=== PATIENT | female | born 1965 | race Caucasian/White ===

== ENCOUNTER 2021-07-09 23:06 | Inpatient (IN) | payer OTHER, MEDICAID ==
[~2021-07-09] VITALS: Ht 162.6 cm; Wt 91.5 kg
[~2021-07-09 23:06] MED LIST: AMLOPIDINE PO; CARI-277 PO; CLOP75TA28 PO; IBUPROFIN PO; METF-370 PO; METHOCARBAMOL; METO-289 PO; NOR10T PO; SIMVISTATIN PO
[2021-07-10] MEDS ORDERED: ONDANSETRON HCL 4 MG/2 ML VIAL IV ONE (01:45)
[2021-07-10] MEDS ORDERED: HYDROmorphone HCL 2 MG/ML VL IV ONE ×2 (01:45→04:45)
[2021-07-10] MEDS ORDERED: dilTIAZem 25 MG/5 ML VIAL IV ONE (01:45)
[2021-07-10 02:22] LABS: Basophils # (auto) 0 10 ^3/uL (0-0.2); Basophils % (auto) 0.3 % (0.0-2.0); Eosinophils # (auto) 0.2 10 ^3/uL (0-0.8); Eosinophils % (auto) 2.1 % (0.0-7.0); Hematocrit 38.7 % (36.0-46.0); Hemoglobin 12.5 g/dL (12.2-16.2); Lymphocytes # (auto) 2.2 10 ^3/uL (0.4-5.4); Lymphocytes % (auto) 26.4 % (10.0-50.0); Mean Corpuscular Hemoglobin 31.3 pg (28.0-32.0); Mean Corpuscular Hgb Conc. 32.4 g/dL (32.0-36.0); Mean Corpuscular Volume 96.6 fL (80.0-100.0); Monocytes # (auto) 0.9 10 ^3/uL (0-1.3); Monocytes % (auto) 11.2 % (0.0-12.0); Nucleated Red Blood Cells % 0.1 %; Red Blood Cells 4.01 10^6/uL (4.0-5.20); White Blood Cell 8.4 10^3/uL (4.4-10.8)
[2021-07-10 02:35] LABS: INR 2.78 (0.9-1.15)
[2021-07-10] MEDS ORDERED: SODIUM CHLORIDE 0.9% 1,000 ML IV ONE ×2 (03:00→07:15)
[2021-07-10 03:16] LABS: Albumin 3.1 g/dL (3.4-5.0); Calcium 9.5 mg/dL (8.5-10.1); Magnesium 1.7 mg/dL (1.6-2.6); Potassium 4.4 mmol/L (3.5-5.1)
[2021-07-10 03:19] LABS: Bilirubin, Total 0.2 mg/dL (0.2-1.0); Total Protein 7.3 g/dL (6.4-8.2)
[2021-07-10] MEDS ORDERED: HYDROcodone-ACET 7.5/325MG TAB PO ONE (05:45)
[2021-07-10] MEDS ORDERED: AMIODARONE HCL 150 MG in D5W 5% 100 ML IV ONE (06:15)
[2021-07-10] MEDS ORDERED: AMIODARONE 450mg/250ml AE 250 ML IV SCH (06:30)
[2021-07-10] MEDS ORDERED: AMIODARONE HCL (50 MG/ ML) 3 ML VIAL IV ONE (06:55)
[2021-07-10] MEDS ORDERED: ACETAMINOPHEN 325 MG TAB PO PRN (07:45)
[2021-07-10] MEDS ORDERED: NITROGLYCERIN 0.4 MG SL TAB SL PRN (07:45)
[2021-07-10] MEDS ORDERED: DEXTROSE (50%) 50ML SYRG IV PRN (07:45)
[2021-07-10] MEDS ORDERED: MULTIPLE VITAMIN TAB PO SCH (10:00)
[2021-07-10] MEDS ORDERED: ASCORBIC ACID 500 MG TAB PO SCH (10:00)
[2021-07-10] MEDS: FAMOTIDINE (10MG/ML) 2ML VL IV SCH (10:00)
[2021-07-10] MEDS ORDERED: ZINC SULFATE 220mg CAP or TAB PO SCH (10:00)
[2021-07-10] MEDS ORDERED: ACCU-CHEK COMFORT CURVE STRIP VI SCH (11:30)
[2021-07-10] MEDS ORDERED: InsuLIN REG 1unit/0.01ml Soln (100units/ml) SC SCH ×2 (11:30→22:00)
[2021-07-10] MEDS ORDERED: NICOTINE 14 MG/24HR TOPICAL PATCH TD ONE (12:00)
[2021-07-10] MEDS ORDERED: HEPARIN SODIUM (PORCINE) 5000 UNITS/ML 1ML VIAL IV ONE (12:00)
[2021-07-10] MEDS ORDERED: DIGOXIN (250MCG/ML) 2 ML AMPULE IV ONE (13:30)
[2021-07-10] MEDS ORDERED: phytonadione 10 MG in SODIUM CHL 0.9% 50 ML IV ONE (13:30)
[2021-07-10] MEDS: SODIUM CHLORIDE 0.9% 1,000 ML IV SCH (13:30)
[2021-07-10] MEDS: SODIUM CHLOR 0.9% PF (SALINE LOCK) 10ML VIAL/SYR IV SCH (14:00)
[2021-07-10] MEDS: HEPARIN DRIP/D5W 100UNITS/ML 250 ML IV SCH (15:00)
[2021-07-10] MEDS: NOREPINEPHRINE 8 MG/250ML KIT 250 ML IV SCH (15:45)
[2021-07-10] MEDS: MORPHINE SULFATE 4 MG/ML SYR/VIAL IV PRN (21:42)
[2021-07-10] MEDS: ONDANSETRON HCL 4 MG/2 ML VIAL IV PRN (21:43)
[2021-07-10 22:42] LABS: Basophils # (auto) 0 10 ^3/uL (0-0.2); Basophils % (auto) 0.5 % (0.0-2.0); Eosinophils # (auto) 0.3 10 ^3/uL (0-0.8); Eosinophils % (auto) 3.4 % (0.0-7.0); Hematocrit 34.7 % (36.0-46.0); Hemoglobin 11.3 g/dL (12.2-16.2); Lymphocytes # (auto) 1.6 10 ^3/uL (0.4-5.4); Lymphocytes % (auto) 17.3 % (10.0-50.0); Mean Corpuscular Hemoglobin 31.3 pg (28.0-32.0); Mean Corpuscular Hgb Conc. 32.6 g/dL (32.0-36.0); Mean Corpuscular Volume 96.1 fL (80.0-100.0); Monocytes % (auto) 10.3 % (0.0-12.0); Neutrophils # (auto) 6.5 10 ^3/uL (1.6-8.6); Neutrophils % (auto) 68.5 % (37.0-80.0); Red Blood Cells 3.62 10^6/uL (4.0-5.20); Red Cell Distribution Width 17.7 % (11.8-14.3); White Blood Cell 9.4 10^3/uL (4.4-10.8)
[2021-07-10 22:54] LABS: INR 1.56 (0.9-1.15); Partial Thromboplastin Time 45.4 sec (23.6-33.0)
[2021-07-11] MEDS: SODIUM CHLOR 0.9% PF (SALINE LOCK) 10ML VIAL/SYR IV SCH ×4 (00:41→22:00)
[2021-07-11] MEDS: SODIUM CHLORIDE 0.9% 1,000 ML IV SCH ×3 (00:41→20:20)
[2021-07-11 03:30] LABS: INR 1.26 (0.9-1.15); Partial Thromboplastin Time 51.5 sec (23.6-33.0)
[2021-07-11] MEDS ORDERED: FOLI1TAB6 PO (05:26)
[2021-07-11] MEDS ORDERED: SITA50TA PO (05:26)
[2021-07-11] MEDS ORDERED: PIO30T PO (05:26)
[2021-07-11] MEDS ORDERED: AMLO-489 PO (05:26)
[2021-07-11] MEDS ORDERED: GABA300C10 PO (05:26)
[2021-07-11] MEDS ORDERED: ATOR80TA PO (05:26)
[2021-07-11] MEDS ORDERED: OME20GT PO (05:26)
[2021-07-11] MEDS ORDERED: METF-372 PO (05:26)
[2021-07-11] MEDS ORDERED: HYDR-3682 PO (05:26)
[2021-07-11] MEDS ORDERED: LISI40TA11 PO (05:26)
[2021-07-11] MEDS ORDERED: DULO60CA PO (05:26)
[2021-07-11] MEDS ORDERED: FAMO-12 PO (05:26)
[2021-07-11] MEDS ORDERED: WARF2TAB49 PO (05:26)
[2021-07-11] MEDS ORDERED: DAPA1TAB4 PO (05:26)
[2021-07-11] MEDS ORDERED: METO-159 PO (05:26)
[2021-07-11 07:14] LABS: Basophils # (auto) 0 10 ^3/uL (0-0.2); Basophils % (auto) 0.6 % (0.0-2.0); Eosinophils # (auto) 0.3 10 ^3/uL (0-0.8); Eosinophils % (auto) 4.2 % (0.0-7.0); Hematocrit 31.9 % (36.0-46.0); Hemoglobin 10.3 g/dL (12.2-16.2); Lymphocytes # (auto) 1.4 10 ^3/uL (0.4-5.4); Lymphocytes % (auto) 21.4 % (10.0-50.0); Mean Corpuscular Hemoglobin 31.2 pg (28.0-32.0); Mean Corpuscular Hgb Conc. 32.2 g/dL (32.0-36.0); Mean Corpuscular Volume 96.8 fL (80.0-100.0); Monocytes # (auto) 0.7 10 ^3/uL (0-1.3); Monocytes % (auto) 10.8 % (0.0-12.0); Neutrophils # (auto) 4.1 10 ^3/uL (1.6-8.6); Red Blood Cells 3.29 10^6/uL (4.0-5.20); Red Cell Distribution Width 17.3 % (11.8-14.3); White Blood Cell 6.5 10^3/uL (4.4-10.8)
[2021-07-11 07:30] LABS: Potassium 4.5 mmol/L (3.5-5.1)
[2021-07-11 08:43] LABS: Magnesium 1.5 mg/dL (1.6-2.6)
[2021-07-11 08:51] LABS: Albumin 2.6 g/dL (3.4-5.0); BUN/Creatinine Ratio 14.3; Bilirubin, Total 0.3 mg/dL (0.2-1.0); Calcium 8.4 mg/dL (8.5-10.1); Phosphorus 2.4 mg/dL (2.5-4.90)
[2021-07-11] MEDS ORDERED: IOHEXOL 350 MG/ML 100ML IJ ONE (12:35)
[2021-07-11 13:15] LABS: INR 1.1 (0.9-1.15); Partial Thromboplastin Time 54.5 sec (23.6-33.0)
[2021-07-11] MEDS: HEPARIN DRIP/D5W 100UNITS/ML 250 ML IV SCH (14:00)
[2021-07-11] MEDS: NOREPINEPHRINE 8 MG/250ML KIT 250 ML IV SCH (14:12)
[2021-07-11] MEDS: ONDANSETRON HCL 4 MG/2 ML VIAL IV PRN ×2 (14:13→17:45)
[2021-07-11] MEDS: MORPHINE SULFATE 4 MG/ML SYR/VIAL IV PRN ×2 (14:13→20:29)
[2021-07-11] MEDS: NICOTINE 14 MG/24HR TOPICAL PATCH TD SCH (14:40)
[2021-07-11] MEDS: FAMOTIDINE (10MG/ML) 2ML VL IV SCH (14:40)
[2021-07-11] MEDS ORDERED: diphenhdrAMINE HCL 50 MG/1 ML VL ONE (15:33)
[2021-07-11] MEDS ORDERED: diphenhdrAMINE HCL 50 MG/1 ML VL IV ONE (15:45)
[2021-07-11 21:53] LABS: Partial Thromboplastin Time > 139.0 sec (23.6-33.0)
[2021-07-11] MEDS: MORPHINE SULFATE INJECTION 2 MG/ML SYRG IV PRN ×2 (22:13→23:39)
[2021-07-12 02:38] LABS: INR 1.05 (0.9-1.15); Partial Thromboplastin Time 29.8 sec (23.6-33.0)
[2021-07-12] MEDS: MORPHINE SULFATE 4 MG/ML SYR/VIAL IV PRN ×4 (02:51→23:40)
[2021-07-12] MEDS ORDERED: HEPARIN SODIUM (PORCINE) 5000 UNITS/ML 1ML VIAL IV ONE (03:30)
[2021-07-12 05:36] LABS: Potassium 4.5 mmol/L (3.5-5.1)
[2021-07-12] MEDS: SODIUM CHLOR 0.9% PF (SALINE LOCK) 10ML VIAL/SYR IV SCH ×3 (06:05→23:38)
[2021-07-12 06:13] LABS: BUN/Creatinine Ratio 12.5; Calcium 8.3 mg/dL (8.5-10.1)
[2021-07-12 06:23] LABS: Basophils # (auto) 0 10 ^3/uL (0-0.2); Basophils % (auto) 0.7 % (0.0-2.0); Eosinophils # (auto) 0.2 10 ^3/uL (0-0.8); Eosinophils % (auto) 4.1 % (0.0-7.0); Hematocrit 28.4 % (36.0-46.0); Hemoglobin 9.4 g/dL (12.2-16.2); Lymphocytes # (auto) 1.7 10 ^3/uL (0.4-5.4); Lymphocytes % (auto) 28.1 % (10.0-50.0); Mean Corpuscular Hemoglobin 32.1 pg (28.0-32.0); Mean Corpuscular Volume 97.1 fL (80.0-100.0); Monocytes # (auto) 0.6 10 ^3/uL (0-1.3); Monocytes % (auto) 9.6 % (0.0-12.0); Neutrophils # (auto) 3.5 10 ^3/uL (1.6-8.6); Neutrophils % (auto) 57.5 % (37.0-80.0); Nucleated Red Blood Cells % 0.2 %; Red Blood Cells 2.92 10^6/uL (4.0-5.20); Red Cell Distribution Width 17.3 % (11.8-14.3)
[2021-07-12] MEDS: SODIUM CHLORIDE 0.9% 1,000 ML IV SCH ×2 (08:49→17:40)
[2021-07-12] MEDS: FAMOTIDINE (10MG/ML) 2ML VL IV SCH (08:53)
[2021-07-12] MEDS: ONDANSETRON HCL 4 MG/2 ML VIAL IV PRN ×2 (08:55→14:37)
[2021-07-12] MEDS ORDERED: GABAPENTIN 100 MG CAP PO ONE (09:15)
[2021-07-12] MEDS: GABAPENTIN 100 MG CAP PO SCH ×2 (09:42→23:38)
[2021-07-12] MEDS: NICOTINE 14 MG/24HR TOPICAL PATCH TD SCH (09:42)
[2021-07-12 10:28] LABS: INR 1.05 (0.9-1.15)
[2021-07-12 10:33] LABS: Partial Thromboplastin Time 81.9 sec (23.6-33.0)
[2021-07-12] MEDS ORDERED: HEPARIN DRIP/D5W 100UNITS/ML 250 ML IV SCH (12:30)
[2021-07-12] MEDS ORDERED: diphenhdrAMINE HCL 50 MG/1 ML VL IV ONE (16:30)
[2021-07-12 18:50] LABS: INR 0.99 (0.9-1.15); Partial Thromboplastin Time 49.2 sec (23.6-33.0)
[2021-07-12] MEDS: diphenhdrAMINE HCL 50 MG/1 ML VL IV PRN (22:04)
[2021-07-13] MEDS: SODIUM CHLORIDE 0.9% 1,000 ML IV SCH ×2 (01:46→09:38)
[2021-07-13 03:02] LABS: INR 0.99 (0.9-1.15); Partial Thromboplastin Time 50.9 sec (23.6-33.0)
[2021-07-13 05:00] VITALS: BP 102/58
[2021-07-13] MEDS: SODIUM CHLOR 0.9% PF (SALINE LOCK) 10ML VIAL/SYR IV SCH ×3 (05:35→21:47)
[2021-07-13 08:44] LABS: Basophils # (auto) 0 10 ^3/uL (0-0.2); Basophils % (auto) 0.9 % (0.0-2.0); Eosinophils # (auto) 0.3 10 ^3/uL (0-0.8); Eosinophils % (auto) 5.1 % (0.0-7.0); Hematocrit 27.6 % (36.0-46.0); Lymphocytes # (auto) 1.4 10 ^3/uL (0.4-5.4); Lymphocytes % (auto) 27.9 % (10.0-50.0); Mean Corpuscular Hemoglobin 31.5 pg (28.0-32.0); Mean Corpuscular Hgb Conc. 32.8 g/dL (32.0-36.0); Monocytes # (auto) 0.4 10 ^3/uL (0-1.3); Monocytes % (auto) 7.9 % (0.0-12.0); Neutrophils % (auto) 58.2 % (37.0-80.0); Nucleated Red Blood Cells % 0.4 %; Red Blood Cells 2.87 10^6/uL (4.0-5.20); Red Cell Distribution Width 17.5 % (11.8-14.3); White Blood Cell 5.1 10^3/uL (4.4-10.8)
[2021-07-13 08:48] VITALS: BP 134/72
[2021-07-13 08:59] LABS: INR 0.98 (0.9-1.15); Partial Thromboplastin Time 25.4 sec (23.6-33.0)
[2021-07-13 09:00] LABS: Potassium 4.3 mmol/L (3.5-5.1)
[2021-07-13 09:09] LABS: Calcium 7.9 mg/dL (8.5-10.1)
[2021-07-13] MEDS: FAMOTIDINE (10MG/ML) 2ML VL IV SCH (09:31)
[2021-07-13] MEDS: MORPHINE SULFATE 4 MG/ML SYR/VIAL IV PRN ×3 (09:32→20:34)
[2021-07-13] MEDS: diphenhdrAMINE HCL 50 MG/1 ML VL IV PRN ×2 (09:32→20:31)
[2021-07-13] MEDS: GABAPENTIN 100 MG CAP PO SCH ×2 (10:00→23:40)
[2021-07-13] MEDS: NICOTINE 14 MG/24HR TOPICAL PATCH TD SCH (10:00)
[2021-07-13] MEDS ORDERED: LIDOCAINE 2%HCL (LOCAL ANESTH.) INJ 20ML MDV ONE ×2 (10:41→11:47)
[2021-07-13] MEDS ORDERED: fentaNYL CITRATE 100 MCG/2 ML VL ONE ×2 (11:46→13:54)
[2021-07-13] MEDS ORDERED: ANGIOMAX 250 MG VIAL IV ONE ×2 (11:46→13:54)
[2021-07-13] MEDS ORDERED: SODIUM CHL 0.9% 50 ML ONE ×2 (11:47→13:55)
[2021-07-13] MEDS ORDERED: MIDAZOLAM HCL 2MG/2ML 2ml VIAL (1mg/ml) ONE ×2 (11:47→13:54)
[2021-07-13] MEDS ORDERED: IODIXANOL 320MG/ML 100ML BTL IV ONE ×2 (14:01→14:47)
[2021-07-13] MEDS ORDERED: FUROSEMIDE 40 MG/4 ML VIAL IV ONE (16:00)
[2021-07-13] MEDS ORDERED: CLOPIDOGREL BISULFATE 75 MG TAB PO ONE (16:00)
[2021-07-13 17:00] VITALS: BP 136/81
[2021-07-13] MEDS ORDERED: WARFARIN SODIUM 2 MG TAB PO ONE (17:00)
[2021-07-13] MEDS: LEVALBUTEROL HCL 1.25 MG/3 ML NEB NEB SCH (18:39)
[2021-07-13] MEDS: IPRATROPIUM BROM 0.5 MG/2.5ML INH SOL NEB SCH (18:39)
[2021-07-13 22:00] VITALS: BP 98/72
[2021-07-14 00:59] LABS: Urine Bacteria NONE SEEN /hpf (None Seen); Urine Blood Negative /uL (Negative); Urine WBC 4 /hpf (0 - 5)
[2021-07-14 01:03] LABS: Urine Specific Gravity > 1.050 (1.001-1.035)
[2021-07-14] MEDS: MORPHINE SULFATE 4 MG/ML SYR/VIAL IV PRN ×4 (03:45→20:17)
[2021-07-14 05:00] VITALS: BP 122/73
[2021-07-14] MEDS: IPRATROPIUM BROM 0.5 MG/2.5ML INH SOL NEB SCH ×4 (07:17→19:10)
[2021-07-14] MEDS: LEVALBUTEROL HCL 1.25 MG/3 ML NEB NEB SCH ×4 (07:17→19:10)
[2021-07-14 07:52] LABS: Basophils # (auto) 0 10 ^3/uL (0-0.2); Basophils % (auto) 0.4 % (0.0-2.0); Eosinophils # (auto) 0.3 10 ^3/uL (0-0.8); Eosinophils % (auto) 4.8 % (0.0-7.0); Hematocrit 28.2 % (36.0-46.0); Hemoglobin 9.5 g/dL (12.2-16.2); Lymphocytes % (auto) 18.3 % (10.0-50.0); Mean Corpuscular Hemoglobin 32.2 pg (28.0-32.0); Mean Corpuscular Hgb Conc. 33.9 g/dL (32.0-36.0); Mean Corpuscular Volume 94.9 fL (80.0-100.0); Monocytes # (auto) 0.6 10 ^3/uL (0-1.3); Monocytes % (auto) 10.6 % (0.0-12.0); Neutrophils # (auto) 3.6 10 ^3/uL (1.6-8.6); Neutrophils % (auto) 65.9 % (37.0-80.0); Nucleated Red Blood Cells % 0.2 %; Red Blood Cells 2.97 10^6/uL (4.0-5.20); White Blood Cell 5.5 10^3/uL (4.4-10.8)
[2021-07-14 08:03] LABS: INR 1.02 (0.9-1.15)
[2021-07-14 08:15] LABS: Potassium 3.5 mmol/L (3.5-5.1)
[2021-07-14 08:20] LABS: Calcium 8.1 mg/dL (8.5-10.1)
[2021-07-14] MEDS ORDERED: ENOXAPARIN SOD 60 MG/0.6 ML SYRINGE SC ONE (09:00)
[2021-07-14] MEDS: GABAPENTIN 100 MG CAP PO SCH ×2 (09:11→20:16)
[2021-07-14] MEDS: CLOPIDOGREL BISULFATE 75 MG TAB PO SCH (09:12)
[2021-07-14] MEDS: NICOTINE 14 MG/24HR TOPICAL PATCH TD SCH (09:14)
[2021-07-14] MEDS: diphenhdrAMINE HCL 50 MG/1 ML VL IV PRN ×3 (09:15→20:17)
[2021-07-14] MEDS: SODIUM CHLOR 0.9% PF (SALINE LOCK) 10ML VIAL/SYR IV SCH ×3 (10:07→20:16)
[2021-07-14] MEDS ORDERED: FUROSEMIDE 40 MG/4 ML VIAL IV ONE (10:30)
[2021-07-14] MEDS ORDERED: POTASSIUM CHL 20 Meq TABLET PO ONE (10:30)
[2021-07-14] MEDS ORDERED: CHOLECALCIFEROL (VITD3) 2,000 UNIT CAP/TAB PO ONE (10:30)
[2021-07-14 17:00] VITALS: BP 136/86
[2021-07-14] MEDS ORDERED: WARFARIN SODIUM 2.5 MG TAB PO ONE (17:00)
[2021-07-14] MEDS: DOCUSATE SOD 100 MG CAP PO PRN (18:03)
[2021-07-14] MEDS: HYDROcodone-ACET 5/325MG TAB PO PRN (18:03)
[2021-07-14 22:00] VITALS: BP 127/76
[2021-07-15] MEDS: HYDROcodone-ACET 5/325MG TAB PO PRN (00:39)
[2021-07-15] MEDS: diphenhdrAMINE HCL 50 MG/1 ML VL IV PRN (03:47)
[2021-07-15] MEDS: MORPHINE SULFATE 4 MG/ML SYR/VIAL IV PRN ×2 (03:47→09:57)
[2021-07-15 05:00] VITALS: BP 129/76
[2021-07-15] MEDS: SODIUM CHLOR 0.9% PF (SALINE LOCK) 10ML VIAL/SYR IV SCH ×2 (06:00→14:00)
[2021-07-15 08:15] VITALS: BP 109/62
[2021-07-15] MEDS: IPRATROPIUM BROM 0.5 MG/2.5ML INH SOL NEB SCH ×2 (08:37)
[2021-07-15] MEDS: LEVALBUTEROL HCL 1.25 MG/3 ML NEB NEB SCH ×2 (08:38)
[2021-07-15 09:00] VITALS: BP 109/62
[2021-07-15] MEDS: NICOTINE 14 MG/24HR TOPICAL PATCH TD SCH (09:44)
[2021-07-15] MEDS: GABAPENTIN 100 MG CAP PO SCH (09:44)
[2021-07-15] MEDS: DOCUSATE SOD 100 MG CAP PO PRN (09:45)
[2021-07-15] MEDS: CLOPIDOGREL BISULFATE 75 MG TAB PO SCH (09:45)
[2021-07-15] MEDS ORDERED: CHOLECALCIFEROL (VITD3) 2,000 UNIT CAP/TAB PO SCH (10:00)
[2021-07-15 10:18] LABS: Basophils # (auto) 0 10 ^3/uL (0-0.2); Basophils % (auto) 0.6 % (0.0-2.0); Eosinophils # (auto) 0.3 10 ^3/uL (0-0.8); Eosinophils % (auto) 6.3 % (0.0-7.0); Hematocrit 30.2 % (36.0-46.0); Hemoglobin 10.5 g/dL (12.2-16.2); Lymphocytes % (auto) 20.4 % (10.0-50.0); Mean Corpuscular Hemoglobin 32.6 pg (28.0-32.0); Mean Corpuscular Hgb Conc. 34.7 g/dL (32.0-36.0); Mean Corpuscular Volume 94.1 fL (80.0-100.0); Monocytes # (auto) 0.5 10 ^3/uL (0-1.3); Monocytes % (auto) 10.1 % (0.0-12.0); Neutrophils # (auto) 3.1 10 ^3/uL (1.6-8.6); Neutrophils % (auto) 62.6 % (37.0-80.0); Nucleated Red Blood Cells % 0.3 %; Red Blood Cells 3.21 10^6/uL (4.0-5.20); Red Cell Distribution Width 17.6 % (11.8-14.3); White Blood Cell 4.9 10^3/uL (4.4-10.8)
[2021-07-15 10:36] LABS: INR 1.06 (0.9-1.15); Partial Thromboplastin Time 26.9 sec (23.6-33.0)
[2021-07-15 10:45] LABS: BUN/Creatinine Ratio 11.4; Calcium 8.3 mg/dL (8.5-10.1); Potassium 3.9 mmol/L (3.5-5.1)
[2021-07-15] MEDS ORDERED: CHOL1CAP47 PO (12:16)
[2021-07-15] MEDS ORDERED: NICO14DI9 TD (12:16)
[2021-07-15 13:00] VITALS: BP 115/56
[2021-07-15 15:57] VITALS: BP 130/82
[2021-07-15 16:00] VITALS: BP 130/82
[2021-07-15] MEDS ORDERED: WARFARIN SODIUM 10 MG TAB PO ONE (17:00)
== END 2021-07-15 16:35 | disposition home or self-care (01) | DRG 252 ==
LOC: ER 23:06 → TELE 07-10 07:44 → TELE-WESTW 07-12 22:36
PROVIDERS: ADMIT Nurse Practitioner Family; ATTEND Internal Medicine
PROC: 047M3ZZ Dilation of Right Popliteal Artery, Percutaneous Approach (ICD-10-PCS; principal; 2021-07-13)
PROC: 047K3DZ Dilation of Right Femoral Artery with Intraluminal Device, Percutaneous Approach (ICD-10-PCS; 2021-07-13)
PROC: B41FYZZ Fluoroscopy of Right Lower Extremity Arteries using Other Contrast (ICD-10-PCS; 2021-07-13)
PROC: B41CYZZ Fluoroscopy of Pelvic Arteries using Other Contrast (ICD-10-PCS; 2021-07-13)
PROC: 05HD33Z Insertion of Infusion Device into Right Cephalic Vein, Percutaneous Approach (ICD-10-PCS; 2021-07-13)
PROC: B54MZZA Ultrasonography of Right Upper Extremity Veins, Guidance (ICD-10-PCS; 2021-07-13)
DX: E11.51 Type 2 diabetes mellitus with diabetic peripheral angiopathy without gangrene (principal); I21.A1 Myocardial infarction type 2; I77.77 Dissection of artery of lower extremity; D68.9 Coagulation defect, unspecified; I47.1 Supraventricular tachycardia; R57.9 Shock, unspecified; I48.92 Unspecified atrial flutter; N17.8 Other acute kidney failure; E11.22 Type 2 diabetes mellitus with diabetic chronic kidney disease; F17.210 Nicotine dependence, cigarettes, uncomplicated; I12.9 Hypertensive chronic kidney disease with stage 1 through stage 4 chronic kidney disease, or unspecified chronic kidney disease; E78.5 Hyperlipidemia, unspecified; Z20.822 Contact with and (suspected) exposure to COVID-19; E66.9 Obesity, unspecified; N87.9 Dysplasia of cervix uteri, unspecified; I70.201 Unspecified atherosclerosis of native arteries of extremities, right leg; I48.91 Unspecified atrial fibrillation; N18.31 Chronic kidney disease, stage 3a; Z79.01 Long term (current) use of anticoagulants; Z88.2 Allergy status to sulfonamides; Z68.32 Body mass index [BMI] 32.0-32.9, adult; Z87.442 Personal history of urinary calculi; Z95.1 Presence of aortocoronary bypass graft; Z95.2 Presence of prosthetic heart valve; Z98.51 Tubal ligation status; Z90.49 Acquired absence of other specified parts of digestive tract
CPT/HCPCS: 36415; 37226; 71045; 75635; 75710; 75736; 76775; 76942; 80048; 80053; 81001; 82306; 83735; 83880; 83970; 84100; 84484; 85025; 85610; 85730; 86850; 86900; 86901; 87040; 87081; 87086; 87088; 87186; 87426; 93005; 93306; 93926; 93971; 94640; 96361; 96374; 96375; 99152; 99153; C1884; G0378; J2250; J2405; J3430; J3490; J7060; Q9967

== ENCOUNTER 2021-07-18 13:03 | Inpatient (IN) | payer OTHER, MEDICAID ==
[~2021-07-18] VITALS: Ht 162.6 cm; Wt 96.8 kg
[~2021-07-18 13:03] MED LIST changes: +AMLO-489 PO; +ATOR80TA PO; +CHOL1CAP47 PO; +DAPA1TAB4 PO; +DULO60CA PO; +FAMO-12 PO; +FOLI1TAB6 PO; +GABA300C10 PO; +HYDR-3682 PO; -IBUPROFIN PO; +LISI40TA11 PO; +METF-372 PO; -METHOCARBAMOL; +METO-159 PO; +NICO14DI9 TD; +OME20GT PO; +PIO30T PO; -SIMVISTATIN PO; +SITA50TA PO; +WARF2TAB49 PO
[2021-07-18 14:05] LABS: Urine Bacteria FEW /hpf (None Seen); Urine Blood Negative /uL (Negative); Urine Hyaline Cast MOD /lpf (0 - 2); Urine Mucus FEW (None Seen); Urine Specific Gravity 1.006 (1.001-1.035); Urine WBC 25 /hpf (0 - 5)
[2021-07-18 14:52] LABS: Basophils # (auto) 0.1 10 ^3/uL (0-0.2); Basophils % (auto) 1.1 % (0.0-2.0); Eosinophils # (auto) 0.4 10 ^3/uL (0-0.8); Eosinophils % (auto) 3.9 % (0.0-7.0); Hematocrit 35.5 % (36.0-46.0); Hemoglobin 11.7 g/dL (12.2-16.2); Lymphocytes # (auto) 2.1 10 ^3/uL (0.4-5.4); Lymphocytes % (auto) 19.3 % (10.0-50.0); Mean Corpuscular Hemoglobin 31.5 pg (28.0-32.0); Mean Corpuscular Volume 95.4 fL (80.0-100.0); Monocytes # (auto) 1.2 10 ^3/uL (0-1.3); Monocytes % (auto) 10.4 % (0.0-12.0); Neutrophils # (auto) 7.2 10 ^3/uL (1.6-8.6); Neutrophils % (auto) 65.3 % (37.0-80.0); Nucleated Red Blood Cells % 0.1 %; Red Blood Cells 3.72 10^6/uL (4.0-5.20); Red Cell Distribution Width 17.8 % (11.8-14.3); White Blood Cell 11.1 10^3/uL (4.4-10.8)
[2021-07-18 15:11] LABS: Albumin 3.4 g/dL (3.4-5.0); Calcium 9.6 mg/dL (8.5-10.1); Potassium 3.9 mmol/L (3.5-5.1)
[2021-07-18 15:13] LABS: BUN/Creatinine Ratio 17.5; Bilirubin, Total 0.4 mg/dL (0.2-1.0); Total Protein 7.2 g/dL (6.4-8.2)
[2021-07-19] MEDS ORDERED: SODIUM CHLORIDE 0.9% 1,000 ML IV ONE (02:30)
[2021-07-19 03:19] LABS: INR 1.18 (0.9-1.15)
[2021-07-19] MEDS ORDERED: ONDANSETRON HCL 4 MG/2 ML VIAL IV ONE (03:45)
[2021-07-19] MEDS ORDERED: HEPARIN SODIUM (PORCINE) 5000 UNITS/ML 1ML VIAL IV ONE ×2 (03:45→04:00)
[2021-07-19] MEDS ORDERED: MORPHINE SULFATE 4 MG/ML SYR/VIAL IV ONE (03:45)
[2021-07-19] MEDS ORDERED: HEPARIN DRIP/D5W 100UNITS/ML 250 ML IV SCH (03:45)
[2021-07-19 03:51] LABS: Basophils # (auto) 0.1 10 ^3/uL (0-0.2); Basophils % (auto) 0.9 % (0.0-2.0); Eosinophils # (auto) 0.6 10 ^3/uL (0-0.8); Eosinophils % (auto) 5.7 % (0.0-7.0); Hematocrit 33.1 % (36.0-46.0); Lymphocytes # (auto) 1.8 10 ^3/uL (0.4-5.4); Lymphocytes % (auto) 18.4 % (10.0-50.0); Mean Corpuscular Hemoglobin 31.5 pg (28.0-32.0); Mean Corpuscular Hgb Conc. 33.2 g/dL (32.0-36.0); Mean Corpuscular Volume 94.7 fL (80.0-100.0); Monocytes # (auto) 1.2 10 ^3/uL (0-1.3); Monocytes % (auto) 12.2 % (0.0-12.0); Neutrophils # (auto) 6.3 10 ^3/uL (1.6-8.6); Neutrophils % (auto) 62.8 % (37.0-80.0); Red Blood Cells 3.49 10^6/uL (4.0-5.20); Red Cell Distribution Width 17.5 % (11.8-14.3)
[2021-07-19] MEDS: HEPARIN DRIP/D5W 100UNITS/ML 250 ML IV SCH ×2 (04:00→22:19)
[2021-07-19] MEDS ORDERED: ONDANSETRON HCL 4 MG/2 ML VIAL IV PRN (05:00)
[2021-07-19] MEDS ORDERED: ACETAMINOPHEN 325 MG TAB PO PRN (05:00)
[2021-07-19] MEDS ORDERED: hydrALAZINE HCL 20 MG/ML VL IV PRN (05:00)
[2021-07-19 08:16] LABS: Basophils # (auto) 0.1 10 ^3/uL (0-0.2); Eosinophils # (auto) 0.6 10 ^3/uL (0-0.8); Eosinophils % (auto) 6.1 % (0.0-7.0); Hematocrit 31.4 % (36.0-46.0); Hemoglobin 10.7 g/dL (12.2-16.2); Lymphocytes % (auto) 20.6 % (10.0-50.0); Mean Corpuscular Hemoglobin 32.7 pg (28.0-32.0); Mean Corpuscular Volume 96.1 fL (80.0-100.0); Monocytes # (auto) 1.2 10 ^3/uL (0-1.3); Neutrophils # (auto) 5.8 10 ^3/uL (1.6-8.6); Neutrophils % (auto) 60.3 % (37.0-80.0); Nucleated Red Blood Cells % 0.1 %; Red Blood Cells 3.27 10^6/uL (4.0-5.20); Red Cell Distribution Width 17.5 % (11.8-14.3); White Blood Cell 9.7 10^3/uL (4.4-10.8)
[2021-07-19 08:33] LABS: Albumin 2.6 g/dL (3.4-5.0); Calcium 8.2 mg/dL (8.5-10.1); Potassium 3.7 mmol/L (3.5-5.1)
[2021-07-19 08:37] LABS: BUN/Creatinine Ratio 18.5; Bilirubin, Total 0.3 mg/dL (0.2-1.0)
[2021-07-19] MEDS: cefTRIAXone 1GM/50ML D5W 50 ML IV SCH (09:00)
[2021-07-19] MEDS: FAMOTIDINE (10MG/ML) 2ML VL IV SCH ×2 (10:00→22:19)
[2021-07-19] MEDS: MORPHINE SULFATE 4 MG/ML SYR/VIAL IV PRN ×3 (10:20→22:24)
[2021-07-19] MEDS ORDERED: CLOPIDOGREL BISULFATE 75 MG TAB PO ONE (11:15)
[2021-07-19] MEDS ORDERED: IOHEXOL 350 MG/ML 100ML IJ ONE (12:24)
[2021-07-19 20:20] VITALS: BP 108/52
[2021-07-19 21:26] LABS: INR 1.23 (0.9-1.15)
[2021-07-19 21:31] LABS: Partial Thromboplastin Time > 139.0 sec (23.6-33.0)
[2021-07-19 22:00] VITALS: BP 113/69
[2021-07-19] MEDS: ATORVASTATIN 20 MG TAB PO SCH (22:20)
[2021-07-20] MEDS: HYDROcodone-ACET 5/325MG TAB PO PRN ×3 (01:05→10:22)
[2021-07-20] MEDS: diphenhdrAMINE HCL 25 MG CAP PO PRN (01:06)
[2021-07-20 03:25] LABS: INR 1.22 (0.9-1.15)
[2021-07-20] MEDS: MORPHINE SULFATE 4 MG/ML SYR/VIAL IV PRN ×4 (03:39→21:48)
[2021-07-20 04:17] LABS: Basophils # (auto) 0.1 10 ^3/uL (0-0.2); Eosinophils # (auto) 0.5 10 ^3/uL (0-0.8); Eosinophils % (auto) 5.6 % (0.0-7.0); Hematocrit 32.9 % (36.0-46.0); Hemoglobin 11.1 g/dL (12.2-16.2); Lymphocytes # (auto) 2.2 10 ^3/uL (0.4-5.4); Lymphocytes % (auto) 25.1 % (10.0-50.0); Mean Corpuscular Hemoglobin 32.2 pg (28.0-32.0); Mean Corpuscular Hgb Conc. 33.7 g/dL (32.0-36.0); Mean Corpuscular Volume 95.4 fL (80.0-100.0); Monocytes # (auto) 0.9 10 ^3/uL (0-1.3); Monocytes % (auto) 9.7 % (0.0-12.0); Neutrophils # (auto) 5.1 10 ^3/uL (1.6-8.6); Neutrophils % (auto) 58.6 % (37.0-80.0); Red Blood Cells 3.45 10^6/uL (4.0-5.20); Red Cell Distribution Width 17.3 % (11.8-14.3); White Blood Cell 8.8 10^3/uL (4.4-10.8)
[2021-07-20 05:00] VITALS: BP 107/61
[2021-07-20 05:13] LABS: BUN/Creatinine Ratio 30.1; Bilirubin, Total 0.3 mg/dL (0.2-1.0); Calcium 8.6 mg/dL (8.5-10.1); Potassium 3.8 mmol/L (3.5-5.1); Total Protein 6.1 g/dL (6.4-8.2)
[2021-07-20 05:14] LABS: Albumin 2.8 g/dL (3.4-5.0); Magnesium 1.8 mg/dL (1.6-2.6)
[2021-07-20] MEDS: HEPARIN DRIP/D5W 100UNITS/ML 250 ML IV SCH (06:15)
[2021-07-20] MEDS: cefTRIAXone 1GM/50ML D5W 50 ML IV SCH (08:14)
[2021-07-20] MEDS: FAMOTIDINE (10MG/ML) 2ML VL IV SCH ×2 (08:54→21:48)
[2021-07-20] MEDS: CLOPIDOGREL BISULFATE 75 MG TAB PO SCH (08:54)
[2021-07-20 09:58] VITALS: BP 95/50
[2021-07-20 10:05] LABS: INR 1.21 (0.9-1.15)
[2021-07-20 10:41] LABS: Hepatitis B Surface Antibody Negative (Negative)
[2021-07-20 10:42] LABS: Partial Thromboplastin Time 76.1 sec (23.6-33.0)
[2021-07-20 11:05] LABS: Hepatitis A Total Antibody Negative (Negative)
[2021-07-20 13:00] VITALS: BP 120/60
[2021-07-20 14:36] LABS: Hepatitis C Antibody Negative (Negative)
[2021-07-20 17:00] VITALS: BP 121/69
[2021-07-20 18:36] LABS: INR 1.16 (0.9-1.15); Partial Thromboplastin Time 35.6 sec (23.6-33.0)
[2021-07-20] MEDS: ATORVASTATIN 20 MG TAB PO SCH (21:49)
[2021-07-20 22:00] VITALS: BP 125/74
[2021-07-20] MEDS ORDERED: KETOROLAC TROMETH 30 MG/ML 1ML VIAL IV ONE (23:00)
[2021-07-21] MEDS: DOCUSATE SOD 100 MG CAP PO PRN ×2 (00:08→20:02)
[2021-07-21] MEDS: diphenhdrAMINE HCL 25 MG CAP PO PRN ×2 (00:08→20:01)
[2021-07-21] MEDS: HEPARIN DRIP/D5W 100UNITS/ML 250 ML IV SCH ×3 (01:29→22:28)
[2021-07-21] MEDS: MORPHINE SULFATE 4 MG/ML SYR/VIAL IV PRN ×5 (02:49→22:31)
[2021-07-21 03:04] LABS: INR 1.13 (0.9-1.15)
[2021-07-21 05:30] VITALS: BP 138/82
[2021-07-21] MEDS: HYDROcodone-ACET 5/325MG TAB PO PRN ×4 (05:53→20:00)
[2021-07-21 06:26] LABS: Basophils # (auto) 0 10 ^3/uL (0-0.2); Basophils % (auto) 0.8 % (0.0-2.0); Eosinophils # (auto) 0.3 10 ^3/uL (0-0.8); Hematocrit 27.9 % (36.0-46.0); Hemoglobin 9.5 g/dL (12.2-16.2); Lymphocytes # (auto) 1.9 10 ^3/uL (0.4-5.4); Lymphocytes % (auto) 33.1 % (10.0-50.0); Mean Corpuscular Hgb Conc. 33.9 g/dL (32.0-36.0); Mean Corpuscular Volume 94.3 fL (80.0-100.0); Monocytes # (auto) 0.5 10 ^3/uL (0-1.3); Monocytes % (auto) 9.5 % (0.0-12.0); Neutrophils # (auto) 2.9 10 ^3/uL (1.6-8.6); Neutrophils % (auto) 50.6 % (37.0-80.0); Nucleated Red Blood Cells % 0.1 %; Red Blood Cells 2.96 10^6/uL (4.0-5.20); Red Cell Distribution Width 17.1 % (11.8-14.3); White Blood Cell 5.7 10^3/uL (4.4-10.8)
[2021-07-21 08:19] VITALS: BP 133/67
[2021-07-21] MEDS: cefTRIAXone 1GM/50ML D5W 50 ML IV SCH (08:41)
[2021-07-21] MEDS: FAMOTIDINE (10MG/ML) 2ML VL IV SCH ×2 (08:41→20:01)
[2021-07-21 08:53] LABS: INR 1.1 (0.9-1.15); Partial Thromboplastin Time 56.9 sec (23.6-33.0)
[2021-07-21] MEDS: CLOPIDOGREL BISULFATE 75 MG TAB PO SCH (10:00)
[2021-07-21 11:36] VITALS: BP 130/74
[2021-07-21 15:07] LABS: INR 1.06 (0.9-1.15); Partial Thromboplastin Time 46.7 sec (23.6-33.0)
[2021-07-21 16:17] VITALS: BP 136/87
[2021-07-21] MEDS: ATORVASTATIN 20 MG TAB PO SCH (20:01)
[2021-07-21 20:10] VITALS: BP 115/71
[2021-07-21 22:14] LABS: INR 1.05 (0.9-1.15); Partial Thromboplastin Time 45.7 sec (23.6-33.0)
[2021-07-21 22:30] VITALS: BP 110/74
[2021-07-22] MEDS: HYDROcodone-ACET 5/325MG TAB PO PRN ×4 (00:54→20:06)
[2021-07-22] MEDS: MORPHINE SULFATE 4 MG/ML SYR/VIAL IV PRN ×5 (02:53→22:04)
[2021-07-22] MEDS: HEPARIN DRIP/D5W 100UNITS/ML 250 ML IV SCH ×3 (02:55→20:15)
[2021-07-22 04:00] VITALS: BP 126/74
[2021-07-22] MEDS: diphenhdrAMINE HCL 25 MG CAP PO PRN ×2 (06:14→20:05)
[2021-07-22 06:18] LABS: INR 1.07 (0.9-1.15)
[2021-07-22 06:23] LABS: Partial Thromboplastin Time 76.6 sec (23.6-33.0)
[2021-07-22] MEDS: cefTRIAXone 1GM/50ML D5W 50 ML IV SCH (08:32)
[2021-07-22] MEDS: FAMOTIDINE (10MG/ML) 2ML VL IV SCH ×2 (08:32→20:05)
[2021-07-22 09:00] VITALS: BP 136/74
[2021-07-22] MEDS: DOCUSATE SOD 100 MG CAP PO PRN ×2 (11:51→20:05)
[2021-07-22 13:00] VITALS: BP 123/85
[2021-07-22 14:52] LABS: INR 1.07 (0.9-1.15)
[2021-07-22 16:34] VITALS: BP 157/86
[2021-07-22] MEDS: ATORVASTATIN 20 MG TAB PO SCH (20:06)
[2021-07-22 22:13] VITALS: BP 146/85
[2021-07-22 22:27] LABS: INR 1.06 (0.9-1.15); Partial Thromboplastin Time 56.1 sec (23.6-33.0)
[2021-07-23] MEDS: MORPHINE SULFATE 4 MG/ML SYR/VIAL IV PRN ×5 (02:32→23:24)
[2021-07-23 05:18] VITALS: BP 129/80
[2021-07-23 06:02] LABS: Basophils # (auto) 0 10 ^3/uL (0-0.2); Basophils % (auto) 0.7 % (0.0-2.0); Eosinophils # (auto) 0.4 10 ^3/uL (0-0.8); Eosinophils % (auto) 7.7 % (0.0-7.0); Hematocrit 27.5 % (36.0-46.0); Hemoglobin 9.3 g/dL (12.2-16.2); Lymphocytes # (auto) 1.8 10 ^3/uL (0.4-5.4); Lymphocytes % (auto) 33.8 % (10.0-50.0); Mean Corpuscular Hemoglobin 31.9 pg (28.0-32.0); Mean Corpuscular Hgb Conc. 33.6 g/dL (32.0-36.0); Monocytes # (auto) 0.5 10 ^3/uL (0-1.3); Monocytes % (auto) 9.1 % (0.0-12.0); Neutrophils # (auto) 2.7 10 ^3/uL (1.6-8.6); Neutrophils % (auto) 48.7 % (37.0-80.0); Nucleated Red Blood Cells % 0.1 %; Red Cell Distribution Width 16.9 % (11.8-14.3); White Blood Cell 5.4 10^3/uL (4.4-10.8)
[2021-07-23 06:41] LABS: Potassium 3.5 mmol/L (3.5-5.1)
[2021-07-23 06:49] LABS: BUN/Creatinine Ratio 12.1; Calcium 8.1 mg/dL (8.5-10.1)
[2021-07-23] MEDS ORDERED: LIDOCAINE W/ EPINEPHRINE 1% 20ML VIAL ONE (06:56)
[2021-07-23] MEDS ORDERED: ceFAZolin 1GM VL ONE (06:56)
[2021-07-23] MEDS ORDERED: HEPARIN SODIUM (PORCINE) 5000 UNITS/ML 1ML VIAL ONE ×3 (06:56→09:16)
[2021-07-23] MEDS ORDERED: ceFAZolin 1GM/50ML 100 ML IV ONE (06:59)
[2021-07-23] MEDS ORDERED: GELATIN 1 SPONGE SIZE 50 TOP ONE ×2 (07:15→09:41)
[2021-07-23] MEDS ORDERED: PAPAVERINE HCL 60 MG/2 ML 2ML VIAL ONE (07:15)
[2021-07-23] MEDS ORDERED: THROMBIN (BOVINE) 5000 UNIT SOL VIAL ONE ×2 (07:16→09:41)
[2021-07-23] MEDS ORDERED: fentaNYL CITRATE 5 ML ONE (07:31)
[2021-07-23] MEDS ORDERED: MIDAZOLAM HCL 2MG/2ML 2ml VIAL (1mg/ml) ONE (07:31)
[2021-07-23] MEDS ORDERED: ROCURONIUM 10MG/ML 10ML VIAL IV ONE (07:31)
[2021-07-23] MEDS ORDERED: SUCCINYLCHOLINE CHLORIDE 20 MG/ML 10ML VIAL IV ONE (07:32)
[2021-07-23] MEDS ORDERED: ETOMIDATE (2MG/ML) 20ML VIAL IV ONE (07:41)
[2021-07-23] MEDS: cefTRIAXone 1GM/50ML D5W 50 ML IV SCH (09:00)
[2021-07-23] MEDS ORDERED: HYDROmorphone HCL 2 MG/ML VL ONE (09:59)
[2021-07-23] MEDS: FAMOTIDINE (10MG/ML) 2ML VL IV SCH ×2 (10:00→21:35)
[2021-07-23] MEDS ORDERED: PROTAMINE SULFATE 10 MG/ML 5ML VIAL IV ONE (10:14)
[2021-07-23] MEDS ORDERED: PROPOFOL 10 MG/ML 20 ML IV ONE (10:30)
[2021-07-23] MEDS ORDERED: ONDANSETRON HCL 4 MG/2 ML VIAL ONE (10:30)
[2021-07-23] MEDS ORDERED: METOPROLOL TARTRATE 1MG/1ML-5ML VIAL IV ONE (10:45)
[2021-07-23] MEDS ORDERED: ONDANSETRON HCL 4 MG/2 ML VIAL IV PRN (11:30)
[2021-07-23] MEDS ORDERED: HYDROmorphone HCL 2 MG/ML VL IV PRN ×2 (11:30)
[2021-07-23] MEDS: D5W/SOD CHL 0.45%/KCL 20MEQ 1,000 ML IV SCH (12:44)
[2021-07-23 14:22] LABS: INR 1.07 (0.9-1.15); Partial Thromboplastin Time 27.9 sec (23.6-33.0)
[2021-07-23] MEDS: HYDROcodone-ACET 5/325MG TAB PO PRN (16:00)
[2021-07-23 17:00] VITALS: BP 139/69
[2021-07-23 20:00] VITALS: BP 129/66
[2021-07-23] MEDS: ATORVASTATIN 20 MG TAB PO SCH (21:35)
[2021-07-23] MEDS: MORPHINE SULFATE INJECTION 2 MG/ML SYRG IV PRN (21:36)
[2021-07-23] MEDS: DIPYRIDAMOLE 50 MG PO SCH (21:38)
[2021-07-23 22:25] VITALS: BP 129/66
[2021-07-23] MEDS: NITROGLYCERIN 0.4 MG SL TAB SL PRN ×3 (23:35→23:55)
[2021-07-24] VITALS (7 sets, daily range): BP systolic 111–140; BP diastolic 69–77
[2021-07-24] MEDS: HYDROcodone-ACET 5/325MG TAB PO PRN ×3 (00:06→14:14)
[2021-07-24] MEDS: D5W/SOD CHL 0.45%/KCL 20MEQ 1,000 ML IV SCH ×2 (03:16→06:46)
[2021-07-24 06:44] LABS: Basophils # (auto) 0 10 ^3/uL (0-0.2); Basophils % (auto) 0.4 % (0.0-2.0); Eosinophils # (auto) 0.2 10 ^3/uL (0-0.8); Eosinophils % (auto) 1.9 % (0.0-7.0); Hematocrit 27.4 % (36.0-46.0); Hemoglobin 9.4 g/dL (12.2-16.2); Lymphocytes # (auto) 1.2 10 ^3/uL (0.4-5.4); Lymphocytes % (auto) 13.4 % (10.0-50.0); Mean Corpuscular Hemoglobin 32.6 pg (28.0-32.0); Mean Corpuscular Hgb Conc. 34.1 g/dL (32.0-36.0); Mean Corpuscular Volume 95.6 fL (80.0-100.0); Monocytes # (auto) 0.9 10 ^3/uL (0-1.3); Monocytes % (auto) 9.6 % (0.0-12.0); Neutrophils # (auto) 6.8 10 ^3/uL (1.6-8.6); Neutrophils % (auto) 74.7 % (37.0-80.0); Nucleated Red Blood Cells % 0.2 %; Red Blood Cells 2.87 10^6/uL (4.0-5.20); Red Cell Distribution Width 16.9 % (11.8-14.3); White Blood Cell 9.1 10^3/uL (4.4-10.8)
[2021-07-24] MEDS: DIPYRIDAMOLE 50 MG PO SCH ×4 (06:47→21:01)
[2021-07-24 07:24] LABS: Calcium 7.7 mg/dL (8.5-10.1); Magnesium 1.6 mg/dL (1.6-2.6)
[2021-07-24] MEDS: FAMOTIDINE (10MG/ML) 2ML VL IV SCH ×2 (09:03→21:00)
[2021-07-24] MEDS: ASPirin-EC 325mg tab PO SCH (09:03)
[2021-07-24] MEDS: cefTRIAXone 1GM/50ML D5W 50 ML IV SCH (09:05)
[2021-07-24] MEDS: MORPHINE SULFATE 4 MG/ML SYR/VIAL IV PRN ×3 (09:05→21:00)
[2021-07-24] MEDS: ALPRAZolam 0.5 MG TAB PO PRN (12:25)
[2021-07-24] MEDS: diphenhdrAMINE HCL 25 MG CAP PO PRN (21:00)
[2021-07-24] MEDS: ATORVASTATIN 20 MG TAB PO SCH (21:00)
[2021-07-24] MEDS: MORPHINE SULFATE INJECTION 2 MG/ML SYRG IV PRN (22:44)
[2021-07-25] VITALS (7 sets, daily range): BP systolic 122–139; BP diastolic 74–81
[2021-07-25] MEDS: MORPHINE SULFATE 4 MG/ML SYR/VIAL IV PRN ×4 (03:38→20:15)
[2021-07-25] MEDS: DIPYRIDAMOLE 50 MG PO SCH ×4 (06:08→21:36)
[2021-07-25] MEDS: cefTRIAXone 1GM/50ML D5W 50 ML IV SCH (09:16)
[2021-07-25] MEDS: ASPirin-EC 325mg tab PO SCH (09:17)
[2021-07-25] MEDS: FAMOTIDINE (10MG/ML) 2ML VL IV SCH ×2 (09:17→21:35)
[2021-07-25] MEDS: ALPRAZolam 0.5 MG TAB PO PRN ×2 (11:51→23:46)
[2021-07-25] MEDS: ATORVASTATIN 20 MG TAB PO SCH (21:35)
[2021-07-25] MEDS: HYDROcodone-ACET 5/325MG TAB PO PRN (22:09)
[2021-07-26] VITALS (7 sets, daily range): BP systolic 131–164; BP diastolic 67–88
[2021-07-26] MEDS: MORPHINE SULFATE 4 MG/ML SYR/VIAL IV PRN ×5 (03:10→21:35)
[2021-07-26] MEDS: DIPYRIDAMOLE 50 MG PO SCH ×4 (06:05→21:35)
[2021-07-26] MEDS: HYDROcodone-ACET 5/325MG TAB PO PRN ×4 (06:32→23:32)
[2021-07-26] MEDS: ASPirin-EC 325mg tab PO SCH (09:00)
[2021-07-26] MEDS: cefTRIAXone 1GM/50ML D5W 50 ML IV SCH (09:00)
[2021-07-26] MEDS: FAMOTIDINE (10MG/ML) 2ML VL IV SCH ×2 (09:00→21:35)
[2021-07-26] MEDS: diphenhdrAMINE HCL 25 MG CAP PO PRN (11:24)
[2021-07-26] MEDS: ATORVASTATIN 20 MG TAB PO SCH (21:35)
[2021-07-26] MEDS: ALPRAZolam 0.5 MG TAB PO PRN (23:41)
[2021-07-27] MEDS: MORPHINE SULFATE 4 MG/ML SYR/VIAL IV PRN ×5 (01:49→20:46)
[2021-07-27 05:00] VITALS: BP 138/68
[2021-07-27] MEDS: HYDROcodone-ACET 5/325MG TAB PO PRN ×4 (05:30→23:01)
[2021-07-27] MEDS: DIPYRIDAMOLE 50 MG PO SCH ×4 (05:50→23:00)
[2021-07-27 06:40] LABS: Basophils # (auto) 0 10 ^3/uL (0-0.2); Basophils % (auto) 0.4 % (0.0-2.0); Eosinophils # (auto) 0.3 10 ^3/uL (0-0.8); Eosinophils % (auto) 6.2 % (0.0-7.0); Hematocrit 26.7 % (36.0-46.0); Hemoglobin 8.9 g/dL (12.2-16.2); Lymphocytes # (auto) 1.3 10 ^3/uL (0.4-5.4); Lymphocytes % (auto) 24.4 % (10.0-50.0); Mean Corpuscular Hemoglobin 31.4 pg (28.0-32.0); Mean Corpuscular Hgb Conc. 33.4 g/dL (32.0-36.0); Mean Corpuscular Volume 93.9 fL (80.0-100.0); Monocytes # (auto) 0.6 10 ^3/uL (0-1.3); Monocytes % (auto) 10.4 % (0.0-12.0); Neutrophils # (auto) 3.1 10 ^3/uL (1.6-8.6); Neutrophils % (auto) 58.6 % (37.0-80.0); Nucleated Red Blood Cells % 0.1 %; Red Blood Cells 2.84 10^6/uL (4.0-5.20); Red Cell Distribution Width 16.2 % (11.8-14.3); White Blood Cell 5.4 10^3/uL (4.4-10.8)
[2021-07-27 07:09] LABS: Potassium 3.6 mmol/L (3.5-5.1)
[2021-07-27 07:13] LABS: BUN/Creatinine Ratio 14.6; Calcium 8.3 mg/dL (8.5-10.1)
[2021-07-27 08:00] VITALS: BP 142/76
[2021-07-27 08:33] VITALS: BP 142/76
[2021-07-27] MEDS: cefTRIAXone 1GM/50ML D5W 50 ML IV SCH (08:50)
[2021-07-27] MEDS: ASPirin-EC 325mg tab PO SCH (10:13)
[2021-07-27] MEDS: FAMOTIDINE (10MG/ML) 2ML VL IV SCH ×2 (10:13→22:59)
[2021-07-27 13:00] VITALS: BP 139/84
[2021-07-27] MEDS: diphenhdrAMINE HCL 25 MG CAP PO PRN ×2 (13:53→22:59)
[2021-07-27 16:42] VITALS: BP 138/57
[2021-07-27 21:44] VITALS: BP 121/91
[2021-07-27] MEDS: ALPRAZolam 0.5 MG TAB PO PRN (22:59)
[2021-07-27] MEDS: ATORVASTATIN 20 MG TAB PO SCH (22:59)
[2021-07-28] MEDS: MORPHINE SULFATE 4 MG/ML SYR/VIAL IV PRN ×5 (01:40→23:03)
[2021-07-28 05:00] VITALS: BP 130/69
[2021-07-28] MEDS: DIPYRIDAMOLE 50 MG PO SCH ×4 (05:45→23:00)
[2021-07-28] MEDS: cefTRIAXone 1GM/50ML D5W 50 ML IV SCH (08:15)
[2021-07-28 09:00] VITALS: BP 162/77
[2021-07-28] MEDS: FAMOTIDINE (10MG/ML) 2ML VL IV SCH ×2 (09:31→22:59)
[2021-07-28] MEDS: ASPirin-EC 325mg tab PO SCH (09:32)
[2021-07-28] MEDS: HYDROcodone-ACET 5/325MG TAB PO PRN ×2 (12:43→20:51)
[2021-07-28 13:00] VITALS: BP 149/73
[2021-07-28] MEDS ORDERED: GABAPENTIN 100 MG CAP PO ONE (14:45)
[2021-07-28 17:00] VITALS: BP 117/62
[2021-07-28 22:00] VITALS: BP 147/58
[2021-07-28] MEDS: ATORVASTATIN 20 MG TAB PO SCH (22:59)
[2021-07-28] MEDS: GABAPENTIN 300 MG CAP PO SCH (23:00)
[2021-07-28] MEDS: DOCUSATE SOD 100 MG CAP PO PRN (23:03)
[2021-07-28] MEDS: ALPRAZolam 0.5 MG TAB PO PRN (23:04)
[2021-07-29 05:00] VITALS: BP 143/82
[2021-07-29] MEDS: MORPHINE SULFATE 4 MG/ML SYR/VIAL IV PRN ×4 (05:37→20:46)
[2021-07-29] MEDS: DIPYRIDAMOLE 50 MG PO SCH ×4 (07:01→22:13)
[2021-07-29 08:00] VITALS: BP 148/84
[2021-07-29] MEDS: cefTRIAXone 1GM/50ML D5W 50 ML IV SCH (08:07)
[2021-07-29] MEDS: FAMOTIDINE (10MG/ML) 2ML VL IV SCH ×2 (09:08→22:13)
[2021-07-29] MEDS: ASPirin-EC 325mg tab PO SCH (09:08)
[2021-07-29] MEDS: DOCUSATE SOD 100 MG CAP PO PRN (09:09)
[2021-07-29] MEDS: HYDROcodone-ACET 5/325MG TAB PO PRN ×3 (09:09→20:14)
[2021-07-29 11:51] VITALS: BP 147/83
[2021-07-29] MEDS: ALPRAZolam 0.5 MG TAB PO PRN (13:07)
[2021-07-29] MEDS ORDERED: ATOR80TA PO (14:23)
[2021-07-29] MEDS ORDERED: DIPY50TA PO (14:23)
[2021-07-29] MEDS ORDERED: TRAM-711 PO (14:23)
[2021-07-29] MEDS ORDERED: CLOP75TA28 PO (14:23)
[2021-07-29] MEDS ORDERED: CEPH-509 PO (14:26)
[2021-07-29 15:39] VITALS: BP 162/82
[2021-07-29 21:24] VITALS: BP 169/91
[2021-07-29 22:00] VITALS: BP 140/90
[2021-07-29] MEDS: ATORVASTATIN 20 MG TAB PO SCH (22:13)
[2021-07-29] MEDS: GABAPENTIN 300 MG CAP PO SCH (22:14)
[2021-07-30] MEDS: HYDROcodone-ACET 5/325MG TAB PO PRN (00:20)
[2021-07-30] MEDS: ALPRAZolam 0.5 MG TAB PO PRN (00:48)
[2021-07-30] MEDS: MORPHINE SULFATE 4 MG/ML SYR/VIAL IV PRN (04:40)
[2021-07-30 05:40] VITALS: BP 151/75
[2021-07-30] MEDS: DIPYRIDAMOLE 50 MG PO SCH ×2 (06:00→12:00)
[2021-07-30 08:00] VITALS: BP_SYST 151; BP_SYST 167; BP_DIAS 75; BP_DIAS 79
[2021-07-30] MEDS ORDERED: oxyCODONE HCL 5MG TAB PO ONE ×2 (10:15→14:00)
[2021-07-30] MEDS: ASPirin-EC 325mg tab PO SCH (10:25)
[2021-07-30] MEDS: cefTRIAXone 1GM/50ML D5W 50 ML IV SCH (10:25)
[2021-07-30] MEDS: FAMOTIDINE (10MG/ML) 2ML VL IV SCH (10:25)
[2021-07-30 12:00] VITALS: BP 146/71
== END 2021-07-30 15:15 | disposition home or self-care (01) | DRG 252 ==
LOC: ER 13:03 → TELE 13:04 → TELE-WESTW 07-19 09:06 → WEST WING 07-28 17:17 → TELE-WESTW 07-29 23:38 → WEST WING 07-30 01:05
PROVIDERS: ADMIT Nurse Practitioner Family; ATTEND Internal Medicine
PROC: 05HC33Z Insertion of Infusion Device into Left Basilic Vein, Percutaneous Approach (ICD-10-PCS; 2021-07-23)
PROC: B54NZZA Ultrasonography of Left Upper Extremity Veins, Guidance (ICD-10-PCS; 2021-07-23)
PROC: 041K0JL Bypass Right Femoral Artery to Popliteal Artery with Synthetic Substitute, Open Approach (ICD-10-PCS; principal; 2021-07-23 07:39)
DX: E11.52 Type 2 diabetes mellitus with diabetic peripheral angiopathy with gangrene (principal); N17.0 Acute kidney failure with tubular necrosis; N30.00 Acute cystitis without hematuria; T82.898A Other specified complication of vascular prosthetic devices, implants and grafts, initial encounter; E66.9 Obesity, unspecified; I70.201 Unspecified atherosclerosis of native arteries of extremities, right leg; E11.22 Type 2 diabetes mellitus with diabetic chronic kidney disease; I77.1 Stricture of artery; F17.210 Nicotine dependence, cigarettes, uncomplicated; F41.9 Anxiety disorder, unspecified; I12.9 Hypertensive chronic kidney disease with stage 1 through stage 4 chronic kidney disease, or unspecified chronic kidney disease; N18.9 Chronic kidney disease, unspecified; Y83.2 Surgical operation with anastomosis, bypass or graft as the cause of abnormal reaction of the patient, or of later complication, without mention of misadventure at the time of the procedure; Z20.822 Contact with and (suspected) exposure to COVID-19; Z79.02 Long term (current) use of antithrombotics/antiplatelets; Z82.49 Family history of ischemic heart disease and other diseases of the circulatory system; Z68.36 Body mass index [BMI] 36.0-36.9, adult; Z83.3 Family history of diabetes mellitus; Z87.442 Personal history of urinary calculi; Z88.2 Allergy status to sulfonamides; Z90.49 Acquired absence of other specified parts of digestive tract; Z98.51 Tubal ligation status; Y92.89 Other specified places as the place of occurrence of the external cause
CPT/HCPCS: 36415; 71045; 75635; 80048; 80053; 80061; 81001; 82306; 82962; 83036; 83735; 85025; 85610; 85730; 86704; 86706; 86708; 86803; 86850; 86900; 86901; 86920; 87081; 87086; 87340; 87426; 93926; 96361; 96374; 96375; 97110; 97116; 97163; 97530; C1768; G0378; J0330; J0690; J0696; J1885; J2250; J2405; J2440; J2704; J3490

== ENCOUNTER 2021-08-16 08:49 | Inpatient (IN) | payer OTHER, MEDICAID ==
[~2021-08-16] VITALS: Ht 162.6 cm; Wt 113.0 kg
[~2021-08-16 08:49] MED LIST changes: -CARI-277 PO; +CEPH-509 PO; +DIPY50TA PO; -METF-370 PO; -METO-289 PO; -OME20GT PO; +TRAM-711 PO
[2021-08-16] MEDS ORDERED: cefTRIAXone 1GM/50ML D5W 50 ML IV ONE (09:45)
[2021-08-16] MEDS ORDERED: CLINDAMYCIN 600MG IV 50 ML IV ONE (09:45)
[2021-08-16 12:25] LABS: Basophils # (auto) 0.1 10 ^3/uL (0-0.2); Basophils % (auto) 0.7 % (0.0-2.0); Eosinophils # (auto) 0.1 10 ^3/uL (0-0.8); Eosinophils % (auto) 0.6 % (0.0-7.0); Hematocrit 30.4 % (36.0-46.0); Hemoglobin 9.8 g/dL (12.2-16.2); Lymphocytes # (auto) 1.1 10 ^3/uL (0.4-5.4); Lymphocytes % (auto) 11.5 % (10.0-50.0); Mean Corpuscular Hemoglobin 30.2 pg (28.0-32.0); Mean Corpuscular Hgb Conc. 32.2 g/dL (32.0-36.0); Mean Corpuscular Volume 93.8 fL (80.0-100.0); Monocytes # (auto) 0.7 10 ^3/uL (0-1.3); Neutrophils # (auto) 7.8 10 ^3/uL (1.6-8.6); Neutrophils % (auto) 80.2 % (37.0-80.0); Nucleated Red Blood Cells % 0.1 %; Red Blood Cells 3.24 10^6/uL (4.0-5.20); Red Cell Distribution Width 17.8 % (11.8-14.3); White Blood Cell 9.7 10^3/uL (4.4-10.8)
[2021-08-16 12:50] LABS: Lactic Acid w/Reflex 2.8 mmol/L (0.4-2.0)
[2021-08-16 12:52] LABS: Albumin 2.9 g/dL (3.4-5.0); Potassium 5.4 mmol/L (3.5-5.1)
[2021-08-16 12:57] LABS: INR > 8.0 (0.9-1.15); Partial Thromboplastin Time 73.5 sec (23.6-33.0)
[2021-08-16 12:59] LABS: BUN/Creatinine Ratio 28.8; Bilirubin, Total 0.3 mg/dL (0.2-1.0); Total Protein 6.9 g/dL (6.4-8.2)
[2021-08-16] MEDS ORDERED: HYDROcodone-ACET 10/325MG TAB PO ONE ×2 (14:30→22:00)
[2021-08-16] MEDS ORDERED: SODIUM CHLORIDE 0.9% 1,000 ML IV SCH (23:15)
[2021-08-16] MEDS ORDERED: SODIUM ZIRCONIUM CYCL 10 GM PAK PO ONE (23:15)
[2021-08-16] MEDS ORDERED: DEXTROSE (50%) 50ML SYRG IV PRN (23:15)
[2021-08-16] MEDS ORDERED: ACETAMINOPHEN 325 MG TAB PO PRN (23:15)
[2021-08-16] MEDS ORDERED: cefTRIAXone 1GM/50ML D5W 50 ML IV SCH (23:22)
[2021-08-17] MEDS: CLINDAMYCIN 600MG IV 50 ML IV SCH ×4 (00:11→23:29)
[2021-08-17] MEDS: MORPHINE SULFATE 4 MG/ML SYR/VIAL IV PRN ×3 (01:02→21:02)
[2021-08-17] MEDS: ONDANSETRON HCL 4 MG/2 ML VIAL IV PRN ×3 (01:06→21:02)
[2021-08-17 06:57] LABS: Basophils # (auto) 0.1 10 ^3/uL (0-0.2); Basophils % (auto) 0.6 % (0.0-2.0); Eosinophils # (auto) 0.3 10 ^3/uL (0-0.8); Eosinophils % (auto) 3.2 % (0.0-7.0); Hematocrit 25.5 % (36.0-46.0); Lymphocytes # (auto) 2.4 10 ^3/uL (0.4-5.4); Monocytes # (auto) 0.9 10 ^3/uL (0-1.3); Red Blood Cells 2.73 10^6/uL (4.0-5.20)
[2021-08-17] MEDS: InsuLIN REG 1unit/0.01ml Soln (100units/ml) SC SCH ×4 (07:00→22:00)
[2021-08-17 07:02] LABS: Hemoglobin 8.5 g/dL (12.2-16.2); Lymphocytes % (auto) 25.9 % (10.0-50.0); Mean Corpuscular Hgb Conc. 33.2 g/dL (32.0-36.0); Mean Corpuscular Volume 93.3 fL (80.0-100.0); Monocytes % (auto) 10.1 % (0.0-12.0); Neutrophils # (auto) 5.7 10 ^3/uL (1.6-8.6); Neutrophils % (auto) 60.2 % (37.0-80.0); Nucleated Red Blood Cells % 0.1 %; Red Cell Distribution Width 17.6 % (11.8-14.3); White Blood Cell 9.4 10^3/uL (4.4-10.8)
[2021-08-17 07:11] LABS: Albumin 2.8 g/dL (3.4-5.0); Calcium 8.3 mg/dL (8.5-10.1); Potassium 4.5 mmol/L (3.5-5.1)
[2021-08-17 07:15] LABS: BUN/Creatinine Ratio 21.8; Bilirubin, Total 0.2 mg/dL (0.2-1.0); Total Protein 6.4 g/dL (6.4-8.2)
[2021-08-17] MEDS: ACCU-CHEK COMFORT CURVE STRIP VI SCH ×4 (07:27→23:36)
[2021-08-17] MEDS: HYDROcodone-ACET 5/325MG TAB PO PRN ×2 (12:29→18:13)
[2021-08-17] MEDS ORDERED: SODIUM CHLORIDE 0.9% 500 ML IV ONE (12:30)
[2021-08-17] MEDS ORDERED: NITROGLYCERIN 0.4 MG SL TAB SL PRN (12:30)
[2021-08-17] MEDS ORDERED: ALBUMIN 25% 100 ML IV ONE (12:30)
[2021-08-17] MEDS: SODIUM CHLORIDE 0.9% 1,000 ML IV SCH ×2 (12:30→19:58)
[2021-08-17 12:51] LABS: Urine Bacteria NONE SEEN /hpf (None Seen); Urine Blood TRACE /uL (Negative); Urine Specific Gravity 1.017 (1.001-1.035); Urine WBC 9 /hpf (0 - 5)
[2021-08-17] MEDS: SODIUM CHLOR 0.9% PF (SALINE LOCK) 10ML VIAL/SYR IV SCH ×2 (14:00→23:35)
[2021-08-17 22:15] VITALS: BP 132/71
[2021-08-17] MEDS: MORPHINE SULFATE INJECTION 2 MG/ML SYRG IV PRN (23:41)
[2021-08-18] MEDS: MORPHINE SULFATE INJECTION 2 MG/ML SYRG IV PRN (00:36)
[2021-08-18] MEDS: SODIUM CHLORIDE 0.9% 1,000 ML IV SCH ×2 (01:50→08:30)
[2021-08-18 05:47] VITALS: BP 105/58
[2021-08-18] MEDS: CLINDAMYCIN 600MG IV 50 ML IV SCH ×3 (06:30→22:32)
[2021-08-18] MEDS: SODIUM CHLOR 0.9% PF (SALINE LOCK) 10ML VIAL/SYR IV SCH ×3 (06:31→22:32)
[2021-08-18] MEDS: ACCU-CHEK COMFORT CURVE STRIP VI SCH ×4 (06:35→22:00)
[2021-08-18] MEDS: InsuLIN REG 1unit/0.01ml Soln (100units/ml) SC SCH ×4 (06:36→22:00)
[2021-08-18 09:00] VITALS: BP 133/68
[2021-08-18] MEDS: MORPHINE SULFATE 4 MG/ML SYR/VIAL IV PRN ×2 (09:31→14:37)
[2021-08-18] MEDS: ONDANSETRON HCL 4 MG/2 ML VIAL IV PRN ×2 (09:32→14:37)
[2021-08-18] MEDS: CEFTRIAXONE SODIUM 2 GM in D5W 5% 50 ML IV SCH (12:41)
[2021-08-18 13:00] VITALS: BP 121/58
[2021-08-18 13:47] LABS: INR 2.18 (0.9-1.15); Partial Thromboplastin Time 46.5 sec (23.6-33.0)
[2021-08-18 15:17] LABS: BUN/Creatinine Ratio 19.4; Calcium 8.3 mg/dL (8.5-10.1); Potassium 4.6 mmol/L (3.5-5.1)
[2021-08-18 17:00] VITALS: BP 121/58
[2021-08-18] MEDS: HYDROmorphone HCL 2 MG/ML VL IV PRN ×2 (18:26→22:36)
[2021-08-18 20:00] VITALS: BP 131/56
[2021-08-18] MEDS: diphenhdrAMINE HCL 25 MG CAP PO PRN (22:36)
[2021-08-19] VITALS (7 sets, daily range): BP systolic 109–142; BP diastolic 53–82
[2021-08-19] MEDS: MORPHINE SULFATE INJECTION 2 MG/ML SYRG IV PRN (00:15)
[2021-08-19] MEDS: HYDROcodone-ACET 5/325MG TAB PO PRN ×3 (03:54→16:47)
[2021-08-19] MEDS: CLINDAMYCIN 600MG IV 50 ML IV SCH (06:30)
[2021-08-19] MEDS: SODIUM CHLOR 0.9% PF (SALINE LOCK) 10ML VIAL/SYR IV SCH ×3 (06:30→20:50)
[2021-08-19] MEDS: InsuLIN REG 1unit/0.01ml Soln (100units/ml) SC SCH ×4 (06:31→20:51)
[2021-08-19] MEDS: ACCU-CHEK COMFORT CURVE STRIP VI SCH ×4 (06:31→20:52)
[2021-08-19 08:11] LABS: INR 1.49 (0.9-1.15); Partial Thromboplastin Time 28.2 sec (23.6-33.0)
[2021-08-19] MEDS ORDERED: FUROSEMIDE 40 MG/4 ML VIAL IV ONE (09:30)
[2021-08-19] MEDS: CEFTRIAXONE SODIUM 2 GM in D5W 5% 50 ML IV SCH (09:44)
[2021-08-19] MEDS: HYDROmorphone HCL 2 MG/ML VL IV PRN ×3 (09:46→20:45)
[2021-08-19] MEDS: ONDANSETRON HCL 4 MG/2 ML VIAL IV PRN ×2 (09:46→14:29)
[2021-08-19] MEDS: ASPirin 81 mg TAB PO SCH (10:02)
[2021-08-19] MEDS: ENOXAPARIN SOD 80 MG/0.8ML SYRINGE SC SCH ×2 (10:03→20:50)
[2021-08-19] MEDS ORDERED: PANTOPRAZOLE 40 MG/10 ML VIAL INJ IV ONE (13:30)
[2021-08-19] MEDS ORDERED: levoFLOXacin 750MG 150 ML IV ONE (13:30)
[2021-08-19] MEDS ORDERED: LACTULOSE 20Gm/30ML SOLN PO ONE (15:45)
[2021-08-19] MEDS: diphenhdrAMINE HCL 25 MG CAP PO PRN (20:45)
[2021-08-20] MEDS: HYDROcodone-ACET 5/325MG TAB PO PRN (01:48)
[2021-08-20] MEDS: HYDROmorphone HCL 2 MG/ML VL IV PRN ×5 (03:01→21:38)
[2021-08-20 05:00] VITALS: BP 122/55
[2021-08-20] MEDS: SODIUM CHLOR 0.9% PF (SALINE LOCK) 10ML VIAL/SYR IV SCH ×3 (06:52→21:36)
[2021-08-20] MEDS: InsuLIN REG 1unit/0.01ml Soln (100units/ml) SC SCH ×4 (06:53→21:39)
[2021-08-20] MEDS: ACCU-CHEK COMFORT CURVE STRIP VI SCH ×4 (06:53→21:39)
[2021-08-20 08:12] LABS: Basophils # (auto) 0 10 ^3/uL (0-0.2); Lymphocytes # (auto) 1.1 10 ^3/uL (0.4-5.4); Nucleated Red Blood Cells % 0.2 %; White Blood Cell 4.7 10^3/uL (4.4-10.8)
[2021-08-20 08:14] LABS: Basophils % (auto) 0.4 % (0.0-2.0); Eosinophils # (auto) 0.3 10 ^3/uL (0-0.8); Hemoglobin 7.5 g/dL (12.2-16.2); Lymphocytes % (auto) 23.9 % (10.0-50.0); Mean Corpuscular Hemoglobin 30.7 pg (28.0-32.0); Mean Corpuscular Hgb Conc. 32.4 g/dL (32.0-36.0); Monocytes # (auto) 0.5 10 ^3/uL (0-1.3); Neutrophils # (auto) 2.8 10 ^3/uL (1.6-8.6); Neutrophils % (auto) 59.7 % (37.0-80.0); Red Blood Cells 2.43 10^6/uL (4.0-5.20); Red Cell Distribution Width 17.5 % (11.8-14.3)
[2021-08-20 08:20] LABS: Potassium 4.1 mmol/L (3.5-5.1)
[2021-08-20] MEDS ORDERED: ADENOSINE 71 MG in GIVE UN-DILUTED 0 ML IV STA (08:23)
[2021-08-20 08:25] VITALS: BP 139/66
[2021-08-20 08:30] LABS: BUN/Creatinine Ratio 11.5; Calcium 8.5 mg/dL (8.5-10.1)
[2021-08-20] MEDS: ASPirin 81 mg TAB PO SCH (10:00)
[2021-08-20] MEDS ORDERED: PANTOPRAZOLE 40 MG/10 ML VIAL INJ IV SCH (10:00)
[2021-08-20] MEDS ORDERED: PANTOPRAZOLE 40 MG/10 ML VIAL INJ IV ONE (10:27)
[2021-08-20] MEDS ORDERED: DULoxetine HCL 30 MG CAP PO ONE (10:30)
[2021-08-20] MEDS ORDERED: hydrOXYzine 25 MG TAB or CAP PO ONE (10:30)
[2021-08-20] MEDS: levoFLOXacin 750MG 150 ML IV SCH (10:33)
[2021-08-20] MEDS: ENOXAPARIN SOD 80 MG/0.8ML SYRINGE SC SCH ×2 (10:33→21:40)
[2021-08-20 12:30] VITALS: BP 142/79
[2021-08-20 16:34] VITALS: BP 130/74
[2021-08-20 20:00] VITALS: BP 117/58
[2021-08-20] MEDS: DULoxetine HCL 30 MG CAP PO SCH (21:36)
[2021-08-20] MEDS: METOPROLOL TARTRATE 25 MG TAB PO SCH (21:37)
[2021-08-21] MEDS: HYDROmorphone HCL 2 MG/ML VL IV PRN ×9 (02:22→20:53)
[2021-08-21] MEDS: HYDROcodone-ACET 5/325MG TAB PO PRN ×2 (05:59→22:31)
[2021-08-21] MEDS: ACCU-CHEK COMFORT CURVE STRIP VI SCH ×4 (06:00→20:54)
[2021-08-21] MEDS: InsuLIN REG 1unit/0.01ml Soln (100units/ml) SC SCH ×4 (06:00→21:09)
[2021-08-21] MEDS: SODIUM CHLOR 0.9% PF (SALINE LOCK) 10ML VIAL/SYR IV SCH ×3 (06:00→20:54)
[2021-08-21 08:00] VITALS: BP 126/77
[2021-08-21] MEDS: levoFLOXacin 750MG 150 ML IV SCH (08:44)
[2021-08-21] MEDS: METOPROLOL TARTRATE 25 MG TAB PO SCH ×2 (08:45→20:54)
[2021-08-21] MEDS: PANTOPRAZOLE 40 MG TAB PO SCH (08:46)
[2021-08-21] MEDS: ENOXAPARIN SOD 80 MG/0.8ML SYRINGE SC SCH (08:46)
[2021-08-21] MEDS: ASPirin 81 mg TAB PO SCH (08:47)
[2021-08-21] MEDS: DULoxetine HCL 30 MG CAP PO SCH ×2 (08:47→20:54)
[2021-08-21 08:55] VITALS: BP 156/115
[2021-08-21] MEDS ORDERED: ceFAZolin 1GM VL ONE (09:30)
[2021-08-21] MEDS ORDERED: fentaNYL CITRATE 100 MCG/2 ML VL ONE ×2 (09:37→12:54)
[2021-08-21] MEDS ORDERED: KETAMINE HCL 0 ML ONE (09:37)
[2021-08-21] MEDS ORDERED: MIDAZOLAM HCL 2MG/2ML 2ml VIAL (1mg/ml) ONE ×2 (09:37→12:54)
[2021-08-21] MEDS ORDERED: ONDANSETRON HCL 4 MG/2 ML VIAL ONE (09:38)
[2021-08-21] MEDS ORDERED: PROPOFOL 10 MG/ML 20 ML IV ONE (09:38)
[2021-08-21] MEDS ORDERED: SODIUM CHLORIDE LOCK 10 ML ONE (09:38)
[2021-08-21] MEDS ORDERED: HYDROmorphone HCL 2 MG/ML VL ONE (12:21)
[2021-08-21] MEDS ORDERED: GELATIN 1 SPONGE SIZE 50 TOP ONE (12:21)
[2021-08-21] MEDS ORDERED: GELATIN 1 SPONGE SIZE 100 TOP ONE (12:21)
[2021-08-21] MEDS ORDERED: POVIDONE IODINE 10 % TOPICAL OINT 30GM TOP ONE (12:21)
[2021-08-21] MEDS ORDERED: METOPROLOL TARTRATE 1MG/1ML-5ML VIAL IV ONE (12:23)
[2021-08-21] MEDS ORDERED: SUCCINYLCHOLINE CHLORIDE 20 MG/ML 10ML VIAL IV ONE (13:02)
[2021-08-21] MEDS ORDERED: ROCURONIUM 10MG/ML 10ML VIAL IV ONE (13:29)
[2021-08-21] MEDS ORDERED: ONDANSETRON HCL 4 MG/2 ML VIAL IV PRN (14:15)
[2021-08-21] MEDS ORDERED: NEOSTIGMINE 1 MG/ML INJ (10mg/10ML VIAL) ONE (15:08)
[2021-08-21] MEDS ORDERED: GLYCOPYRROLATE 0.2 MG/ML 1ML VIAL ONE (15:08)
[2021-08-21 16:46] VITALS: BP 130/64
[2021-08-21 22:00] VITALS: BP 112/52
[2021-08-22] MEDS: HYDROmorphone HCL 2 MG/ML VL IV PRN ×6 (01:03→22:00)
[2021-08-22 05:00] VITALS: BP 161/84
[2021-08-22 06:10] LABS: Basophils # (auto) 0 10 ^3/uL (0-0.2); Eosinophils # (auto) 0.2 10 ^3/uL (0-0.8); White Blood Cell 5.5 10^3/uL (4.4-10.8)
[2021-08-22 06:13] LABS: Basophils % (auto) 0.4 % (0.0-2.0); Eosinophils % (auto) 3.7 % (0.0-7.0); Hematocrit 22.7 % (36.0-46.0); Hemoglobin 7.1 g/dL (12.2-16.2); Lymphocytes % (auto) 17.7 % (10.0-50.0); Mean Corpuscular Hemoglobin 30.3 pg (28.0-32.0); Mean Corpuscular Hgb Conc. 31.3 g/dL (32.0-36.0); Monocytes # (auto) 0.7 10 ^3/uL (0-1.3); Monocytes % (auto) 12.6 % (0.0-12.0); Neutrophils # (auto) 3.6 10 ^3/uL (1.6-8.6); Neutrophils % (auto) 65.6 % (37.0-80.0); Red Blood Cells 2.34 10^6/uL (4.0-5.20); Red Cell Distribution Width 17.8 % (11.8-14.3)
[2021-08-22 06:17] LABS: BUN/Creatinine Ratio 9.8; Calcium 8.4 mg/dL (8.5-10.1)
[2021-08-22] MEDS: SODIUM CHLOR 0.9% PF (SALINE LOCK) 10ML VIAL/SYR IV SCH ×3 (06:41→23:00)
[2021-08-22] MEDS: ACCU-CHEK COMFORT CURVE STRIP VI SCH ×4 (06:43→23:02)
[2021-08-22] MEDS: InsuLIN REG 1unit/0.01ml Soln (100units/ml) SC SCH ×4 (06:44→22:00)
[2021-08-22 09:22] VITALS: BP 130/64
[2021-08-22] MEDS: levoFLOXacin 750MG 150 ML IV SCH (09:55)
[2021-08-22] MEDS: ASPirin 81 mg TAB PO SCH (09:55)
[2021-08-22] MEDS: DULoxetine HCL 30 MG CAP PO SCH ×2 (09:56→23:00)
[2021-08-22] MEDS: METOPROLOL TARTRATE 25 MG TAB PO SCH ×2 (09:57→23:01)
[2021-08-22] MEDS: PANTOPRAZOLE 40 MG TAB PO SCH (09:58)
[2021-08-22 12:22] VITALS: BP 130/48
[2021-08-22 16:36] VITALS: BP 123/46
[2021-08-23] MEDS: HYDROmorphone HCL 2 MG/ML VL IV PRN ×4 (01:45→22:39)
[2021-08-23] MEDS: SODIUM CHLOR 0.9% PF (SALINE LOCK) 10ML VIAL/SYR IV SCH ×3 (05:57→22:04)
[2021-08-23] MEDS: InsuLIN REG 1unit/0.01ml Soln (100units/ml) SC SCH ×4 (05:57→21:41)
[2021-08-23] MEDS: ACCU-CHEK COMFORT CURVE STRIP VI SCH ×4 (05:58→21:42)
[2021-08-23 06:00] LABS: Basophils # (auto) 0 10 ^3/uL (0-0.2); Basophils % (auto) 0.3 % (0.0-2.0); Eosinophils # (auto) 0.3 10 ^3/uL (0-0.8); Eosinophils % (auto) 4.7 % (0.0-7.0); Hematocrit 22.1 % (36.0-46.0); Hemoglobin 7.1 g/dL (12.2-16.2); Lymphocytes # (auto) 1.3 10 ^3/uL (0.4-5.4); Lymphocytes % (auto) 22.5 % (10.0-50.0); Mean Corpuscular Hemoglobin 30.6 pg (28.0-32.0); Mean Corpuscular Hgb Conc. 32.2 g/dL (32.0-36.0); Mean Corpuscular Volume 94.9 fL (80.0-100.0); Monocytes # (auto) 0.9 10 ^3/uL (0-1.3); Monocytes % (auto) 15.9 % (0.0-12.0); Neutrophils # (auto) 3.2 10 ^3/uL (1.6-8.6); Neutrophils % (auto) 56.6 % (37.0-80.0); Nucleated Red Blood Cells % 0.1 %; Red Blood Cells 2.33 10^6/uL (4.0-5.20); Red Cell Distribution Width 17.7 % (11.8-14.3); White Blood Cell 5.6 10^3/uL (4.4-10.8)
[2021-08-23 06:18] LABS: Potassium 3.6 mmol/L (3.5-5.1)
[2021-08-23 06:26] LABS: Albumin 2.6 g/dL (3.4-5.0); BUN/Creatinine Ratio 12.1; Bilirubin, Total 0.2 mg/dL (0.2-1.0); Calcium 8.3 mg/dL (8.5-10.1); Total Protein 5.8 g/dL (6.4-8.2)
[2021-08-23] MEDS: levoFLOXacin 750MG 150 ML IV SCH (10:10)
[2021-08-23] MEDS: ASPirin 81 mg TAB PO SCH (10:10)
[2021-08-23] MEDS: DULoxetine HCL 30 MG CAP PO SCH ×2 (10:11→22:05)
[2021-08-23] MEDS: METOPROLOL TARTRATE 25 MG TAB PO SCH ×2 (10:12→22:39)
[2021-08-23] MEDS: PANTOPRAZOLE 40 MG TAB PO SCH (10:12)
[2021-08-23 22:00] VITALS: BP 126/72
[2021-08-24] VITALS (9 sets, daily range): BP systolic 99–156; BP diastolic 49–72
[2021-08-24] MEDS: HYDROmorphone HCL 2 MG/ML VL IV PRN ×5 (02:10→21:00)
[2021-08-24 06:01] LABS: Basophils # (auto) 0 10 ^3/uL (0-0.2); Basophils % (auto) 0.3 % (0.0-2.0); Eosinophils # (auto) 0.3 10 ^3/uL (0-0.8); Eosinophils % (auto) 5.5 % (0.0-7.0); Lymphocytes # (auto) 1.3 10 ^3/uL (0.4-5.4); Lymphocytes % (auto) 23.6 % (10.0-50.0); Monocytes # (auto) 0.9 10 ^3/uL (0-1.3)
[2021-08-24 06:05] LABS: Hematocrit 19.8 % (36.0-46.0); Mean Corpuscular Hemoglobin 30.7 pg (28.0-32.0); Mean Corpuscular Hgb Conc. 32.8 g/dL (32.0-36.0); Mean Corpuscular Volume 93.6 fL (80.0-100.0); Monocytes % (auto) 16.6 % (0.0-12.0); Nucleated Red Blood Cells % 0.1 %; Red Blood Cells 2.12 10^6/uL (4.0-5.20); Red Cell Distribution Width 17.4 % (11.8-14.3); White Blood Cell 5.5 10^3/uL (4.4-10.8)
[2021-08-24] MEDS: ACCU-CHEK COMFORT CURVE STRIP VI SCH ×4 (06:12→22:14)
[2021-08-24] MEDS: InsuLIN REG 1unit/0.01ml Soln (100units/ml) SC SCH ×4 (06:12→22:00)
[2021-08-24] MEDS: SODIUM CHLOR 0.9% PF (SALINE LOCK) 10ML VIAL/SYR IV SCH ×3 (06:12→22:14)
[2021-08-24 06:18] LABS: Hemoglobin 6.5 g/dL (12.2-16.2)
[2021-08-24 06:35] LABS: Albumin 2.5 g/dL (3.4-5.0); Calcium 8.5 mg/dL (8.5-10.1); Potassium 3.6 mmol/L (3.5-5.1)
[2021-08-24 06:37] LABS: BUN/Creatinine Ratio 12.1
[2021-08-24 06:40] LABS: Bilirubin, Total 0.3 mg/dL (0.2-1.0); Total Protein 5.9 g/dL (6.4-8.2)
[2021-08-24] MEDS: levoFLOXacin 750MG 150 ML IV SCH (09:19)
[2021-08-24] MEDS: ASPirin 81 mg TAB PO SCH (09:20)
[2021-08-24] MEDS: DULoxetine HCL 30 MG CAP PO SCH ×2 (09:20→22:32)
[2021-08-24] MEDS: PANTOPRAZOLE 40 MG TAB PO SCH (09:20)
[2021-08-24] MEDS: METOPROLOL TARTRATE 25 MG TAB PO SCH ×2 (09:21→22:31)
[2021-08-24] MEDS ORDERED: FUROSEMIDE 40 MG/4 ML VIAL IV ONE (10:00)
[2021-08-24] MEDS ORDERED: FLUCONAZOLE 200MG/100ML 100 ML IV ONE (10:15)
[2021-08-24] MEDS ORDERED: POTASSIUM CHL 20 Meq TABLET PO ONE (10:15)
[2021-08-24 11:15] LABS: INR 1.02 (0.9-1.15)
[2021-08-24] MEDS ORDERED: AMPICILLIN INJ 1 GM in SODIUM CHL 0.9% 50 ML IV SCH (12:00)
[2021-08-24] MEDS ORDERED: WARFARIN SODIUM 2 MG TAB PO ONE (17:00)
[2021-08-24] MEDS: HYDROcodone-ACET 5/325MG TAB PO PRN (23:20)
[2021-08-25] MEDS: HYDROmorphone HCL 2 MG/ML VL IV PRN ×4 (01:30→22:46)
[2021-08-25] MEDS: AMPICILLIN INJ 1 GM in SODIUM CHL 0.9% 50 ML IV SCH ×4 (04:17→21:09)
[2021-08-25 05:51] LABS: Hematocrit 22.7 % (36.0-46.0); Hemoglobin 7.5 g/dL (12.2-16.2)
[2021-08-25 05:57] LABS: INR 1.09 (0.9-1.15)
[2021-08-25] MEDS: ACCU-CHEK COMFORT CURVE STRIP VI SCH ×4 (06:02→21:16)
[2021-08-25] MEDS: SODIUM CHLOR 0.9% PF (SALINE LOCK) 10ML VIAL/SYR IV SCH ×3 (06:02→21:09)
[2021-08-25] MEDS: InsuLIN REG 1unit/0.01ml Soln (100units/ml) SC SCH ×4 (06:02→21:16)
[2021-08-25 08:00] VITALS: BP 121/59
[2021-08-25 09:00] VITALS: BP 121/59
[2021-08-25] MEDS: FLUCONAZOLE 200MG/100ML 100 ML IV SCH ×2 (10:00→11:00)
[2021-08-25] MEDS: DULoxetine HCL 30 MG CAP PO SCH ×2 (10:00→21:08)
[2021-08-25] MEDS: ASPirin 81 mg TAB PO SCH (10:12)
[2021-08-25] MEDS: PANTOPRAZOLE 40 MG TAB PO SCH (10:12)
[2021-08-25] MEDS: METOPROLOL TARTRATE 25 MG TAB PO SCH ×2 (10:18→21:08)
[2021-08-25 12:25] VITALS: BP 142/65
[2021-08-25 17:00] VITALS: BP 166/86
[2021-08-25] MEDS ORDERED: WARFARIN SODIUM 5 MG TAB PO ONE (17:00)
[2021-08-25] MEDS ORDERED: FLUCONAZOLE 200MG/100ML 100 ML IV ONE (17:15)
[2021-08-25] MEDS: hydrOXYzine 25 MG TAB or CAP PO PRN (21:25)
[2021-08-25 22:00] VITALS: BP 143/65
[2021-08-26] MEDS: HYDROmorphone HCL 2 MG/ML VL IV PRN ×5 (02:49→20:55)
[2021-08-26] MEDS: AMPICILLIN INJ 1 GM in SODIUM CHL 0.9% 50 ML IV SCH ×4 (04:53→21:34)
[2021-08-26 05:00] VITALS: BP 135/66
[2021-08-26] MEDS: SODIUM CHLOR 0.9% PF (SALINE LOCK) 10ML VIAL/SYR IV SCH ×3 (06:25→21:35)
[2021-08-26] MEDS: InsuLIN REG 1unit/0.01ml Soln (100units/ml) SC SCH ×4 (06:25→22:00)
[2021-08-26] MEDS: ACCU-CHEK COMFORT CURVE STRIP VI SCH ×4 (06:26→21:37)
[2021-08-26 07:35] LABS: Basophils # (auto) 0 10 ^3/uL (0-0.2); Basophils % (auto) 0.5 % (0.0-2.0); Eosinophils # (auto) 0.3 10 ^3/uL (0-0.8); Eosinophils % (auto) 4.9 % (0.0-7.0); Hematocrit 22.9 % (36.0-46.0); Hemoglobin 7.5 g/dL (12.2-16.2); Lymphocytes # (auto) 1.2 10 ^3/uL (0.4-5.4); Lymphocytes % (auto) 20.6 % (10.0-50.0); Mean Corpuscular Hemoglobin 29.7 pg (28.0-32.0); Mean Corpuscular Hgb Conc. 32.7 g/dL (32.0-36.0); Mean Corpuscular Volume 90.9 fL (80.0-100.0); Neutrophils # (auto) 3.3 10 ^3/uL (1.6-8.6); Nucleated Red Blood Cells % 0.2 %; Red Blood Cells 2.52 10^6/uL (4.0-5.20); Red Cell Distribution Width 18.5 % (11.8-14.3); White Blood Cell 5.7 10^3/uL (4.4-10.8)
[2021-08-26 07:38] LABS: INR 1.03 (0.9-1.15)
[2021-08-26 08:10] VITALS: BP 125/73
[2021-08-26] MEDS: ASPirin 81 mg TAB PO SCH (09:14)
[2021-08-26] MEDS: PANTOPRAZOLE 40 MG TAB PO SCH (09:14)
[2021-08-26] MEDS: DULoxetine HCL 30 MG CAP PO SCH ×2 (09:14→21:36)
[2021-08-26] MEDS: METOPROLOL TARTRATE 25 MG TAB PO SCH ×2 (09:28→21:39)
[2021-08-26] MEDS: FLUCONAZOLE 200MG/100ML 100 ML IV SCH ×2 (10:08→11:34)
[2021-08-26 10:09] VITALS: BP 125/73
[2021-08-26] MEDS: hydrOXYzine 25 MG TAB or CAP PO PRN (12:06)
[2021-08-26 13:00] VITALS: BP 148/75
[2021-08-26] MEDS ORDERED: diphenhdrAMINE HCL 50 MG/1 ML VL IV ONE (15:30)
[2021-08-26] MEDS ORDERED: LACTULOSE 20Gm/30ML SOLN PO ONE (16:00)
[2021-08-26 17:00] VITALS: BP 144/75
[2021-08-26] MEDS ORDERED: WARFARIN SODIUM 2.5 MG TAB PO ONE (17:00)
[2021-08-26 22:00] VITALS: BP 134/48
[2021-08-27] MEDS: HYDROmorphone HCL 2 MG/ML VL IV PRN ×4 (01:11→20:37)
[2021-08-27] MEDS: AMPICILLIN INJ 1 GM in SODIUM CHL 0.9% 50 ML IV SCH ×4 (04:45→23:45)
[2021-08-27 05:00] VITALS: BP 146/67
[2021-08-27] MEDS: SODIUM CHLOR 0.9% PF (SALINE LOCK) 10ML VIAL/SYR IV SCH ×3 (06:00→20:35)
[2021-08-27] MEDS: InsuLIN REG 1unit/0.01ml Soln (100units/ml) SC SCH ×4 (06:12→22:00)
[2021-08-27] MEDS: ACCU-CHEK COMFORT CURVE STRIP VI SCH ×4 (06:12→23:47)
[2021-08-27 08:00] VITALS: BP 132/61
[2021-08-27] MEDS: FLUCONAZOLE 200MG/100ML 100 ML IV SCH ×2 (11:00→11:23)
[2021-08-27] MEDS: DULoxetine HCL 30 MG CAP PO SCH ×2 (11:20→23:45)
[2021-08-27] MEDS: METOPROLOL TARTRATE 25 MG TAB PO SCH ×2 (11:22→23:46)
[2021-08-27] MEDS: ASPirin 81 mg TAB PO SCH (11:23)
[2021-08-27] MEDS: PANTOPRAZOLE 40 MG TAB PO SCH (11:23)
[2021-08-27 12:33] LABS: Basophils # (auto) 0 10 ^3/uL (0-0.2); Eosinophils # (auto) 0.1 10 ^3/uL (0-0.8); Eosinophils % (auto) 1.7 % (0.0-7.0); Hemoglobin 7.3 g/dL (12.2-16.2); Lymphocytes # (auto) 0.8 10 ^3/uL (0.4-5.4)
[2021-08-27 12:34] LABS: INR 1.22 (0.9-1.15)
[2021-08-27 12:35] LABS: Basophils % (auto) 0.4 % (0.0-2.0); Hematocrit 22.2 % (36.0-46.0); Lymphocytes % (auto) 13.2 % (10.0-50.0); Mean Corpuscular Hgb Conc. 32.9 g/dL (32.0-36.0); Mean Corpuscular Volume 91.3 fL (80.0-100.0); Neutrophils # (auto) 4.1 10 ^3/uL (1.6-8.6); Neutrophils % (auto) 68.7 % (37.0-80.0); Red Blood Cells 2.43 10^6/uL (4.0-5.20); Red Cell Distribution Width 18.1 % (11.8-14.3)
[2021-08-27 12:58] VITALS: BP 146/62
[2021-08-27 16:52] VITALS: BP 136/69
[2021-08-27] MEDS ORDERED: WARFARIN SODIUM 2.5 MG TAB PO ONE (17:00)
[2021-08-27 22:00] VITALS: BP 132/67
[2021-08-27] MEDS: HYDROcodone-ACET 5/325MG TAB PO PRN (23:48)
[2021-08-28] MEDS: HYDROmorphone HCL 2 MG/ML VL IV PRN ×6 (01:27→22:14)
[2021-08-28] MEDS: AMPICILLIN INJ 1 GM in SODIUM CHL 0.9% 50 ML IV SCH (05:21)
[2021-08-28] MEDS: ACCU-CHEK COMFORT CURVE STRIP VI SCH ×4 (05:26→22:12)
[2021-08-28] MEDS: SODIUM CHLOR 0.9% PF (SALINE LOCK) 10ML VIAL/SYR IV SCH ×3 (05:26→22:10)
[2021-08-28] MEDS: InsuLIN REG 1unit/0.01ml Soln (100units/ml) SC SCH ×4 (05:36→22:00)
[2021-08-28 05:42] VITALS: BP 120/67
[2021-08-28 06:38] LABS: INR 1.68 (0.9-1.15); Partial Thromboplastin Time 37.6 sec (23.6-33.0)
[2021-08-28 09:00] VITALS: BP 144/74
[2021-08-28] MEDS: FLUCONAZOLE 200MG/100ML 100 ML IV SCH ×4 (09:32→13:11)
[2021-08-28] MEDS: DULoxetine HCL 30 MG CAP PO SCH ×2 (09:32→22:11)
[2021-08-28] MEDS: METOPROLOL TARTRATE 25 MG TAB PO SCH ×2 (09:33→22:12)
[2021-08-28] MEDS: PANTOPRAZOLE 40 MG TAB PO SCH (09:34)
[2021-08-28] MEDS: ASPirin 81 mg TAB PO SCH (09:35)
[2021-08-28] MEDS ORDERED: VANCOMYCIN PER PHARMACY 0 MG IV SCH (09:45)
[2021-08-28 10:05] LABS: Basophils # (auto) 0.1 10 ^3/uL (0-0.2); Basophils % (auto) 1.4 % (0.0-2.0); Eosinophils # (auto) 0.3 10 ^3/uL (0-0.8); Hematocrit 23.3 % (36.0-46.0); Hemoglobin 7.5 g/dL (12.2-16.2); Lymphocytes # (auto) 1.3 10 ^3/uL (0.4-5.4); Lymphocytes % (auto) 24.1 % (10.0-50.0); Mean Corpuscular Hemoglobin 29.3 pg (28.0-32.0); Mean Corpuscular Hgb Conc. 32.3 g/dL (32.0-36.0); Mean Corpuscular Volume 90.7 fL (80.0-100.0); Monocytes # (auto) 0.8 10 ^3/uL (0-1.3); Monocytes % (auto) 14.5 % (0.0-12.0); Neutrophils # (auto) 2.9 10 ^3/uL (1.6-8.6); Nucleated Red Blood Cells % 0.2 %; Red Blood Cells 2.57 10^6/uL (4.0-5.20); Red Cell Distribution Width 17.5 % (11.8-14.3); White Blood Cell 5.4 10^3/uL (4.4-10.8)
[2021-08-28 10:06] LABS: BUN/Creatinine Ratio 11.1; Calcium 8.7 mg/dL (8.5-10.1); Potassium 3.7 mmol/L (3.5-5.1)
[2021-08-28] MEDS ORDERED: D5W/SOD CHL 0.45% 1,000 ML IV ONE (11:00)
[2021-08-28] MEDS: HYDROcodone-ACET 5/325MG TAB PO PRN (12:16)
[2021-08-28 13:00] VITALS: BP 145/72
[2021-08-28] MEDS ORDERED: IOHEXOL 300 MG/ML 100ML BOTTLE IJ ONE (13:50)
[2021-08-28 13:59] LABS: % Iron Saturation 4.3 % (15-50)
[2021-08-28] MEDS: VANCOMYCIN 1GM/250ML 250 ML IV SCH (15:10)
[2021-08-28 17:00] VITALS: BP 136/61
[2021-08-28] MEDS ORDERED: WARFARIN SODIUM 2 MG TAB PO ONE (17:00)
[2021-08-28] MEDS ORDERED: SODIUM FERR GLUC 62.5MG/5ML 125 MG in SODIUM CHL 0.9% 100 ML IV ONE (19:00)
[2021-08-28 22:00] VITALS: BP 154/61
[2021-08-28] MEDS: diphenhdrAMINE HCL 50 MG/1 ML VL IV PRN (22:13)
[2021-08-29] MEDS: HYDROmorphone HCL 2 MG/ML VL IV PRN ×5 (01:50→22:44)
[2021-08-29] MEDS: VANCOMYCIN 1GM/250ML 250 ML IV SCH ×2 (02:25→19:48)
[2021-08-29 05:00] VITALS: BP 142/59
[2021-08-29 06:20] LABS: Basophils # (auto) 0 10 ^3/uL (0-0.2); Hematocrit 21.8 % (36.0-46.0); Hemoglobin 7.2 g/dL (12.2-16.2); Mean Corpuscular Volume 89.9 fL (80.0-100.0); Monocytes # (auto) 0.7 10 ^3/uL (0-1.3); Red Blood Cells 2.43 10^6/uL (4.0-5.20); White Blood Cell 5.8 10^3/uL (4.4-10.8)
[2021-08-29 06:24] LABS: Basophils % (auto) 0.6 % (0.0-2.0); Eosinophils # (auto) 0.3 10 ^3/uL (0-0.8); Eosinophils % (auto) 4.3 % (0.0-7.0); Lymphocytes % (auto) 17.7 % (10.0-50.0); Mean Corpuscular Hemoglobin 29.6 pg (28.0-32.0); Mean Corpuscular Hgb Conc. 32.9 g/dL (32.0-36.0); Monocytes % (auto) 12.7 % (0.0-12.0); Neutrophils # (auto) 3.7 10 ^3/uL (1.6-8.6); Neutrophils % (auto) 64.7 % (37.0-80.0); Nucleated Red Blood Cells % 0.1 %; Red Cell Distribution Width 17.5 % (11.8-14.3)
[2021-08-29] MEDS: ACCU-CHEK COMFORT CURVE STRIP VI SCH ×4 (06:31→22:00)
[2021-08-29] MEDS: SODIUM CHLOR 0.9% PF (SALINE LOCK) 10ML VIAL/SYR IV SCH ×3 (06:31→22:45)
[2021-08-29] MEDS: InsuLIN REG 1unit/0.01ml Soln (100units/ml) SC SCH ×4 (06:31→22:00)
[2021-08-29 06:35] LABS: INR 2.35 (0.9-1.15)
[2021-08-29 09:00] VITALS: BP 112/64
[2021-08-29] MEDS: DULoxetine HCL 30 MG CAP PO SCH ×2 (10:00→22:45)
[2021-08-29] MEDS: METOPROLOL TARTRATE 25 MG TAB PO SCH ×2 (11:16→22:46)
[2021-08-29] MEDS: ASPirin 81 mg TAB PO SCH (11:16)
[2021-08-29] MEDS: PANTOPRAZOLE 40 MG TAB PO SCH (11:16)
[2021-08-29] MEDS ORDERED: FUROSEMIDE 40 MG/4 ML VIAL IV ONE (12:30)
[2021-08-29] MEDS ORDERED: ALBUMIN 25% 100 ML IV ONE (12:30)
[2021-08-29] MEDS ORDERED: POTASSIUM CHL 20 Meq TABLET PO ONE (12:30)
[2021-08-29 13:00] VITALS: BP 121/73
[2021-08-29] MEDS: FLUCONAZOLE 200MG/100ML 100 ML IV SCH ×2 (14:03→17:24)
[2021-08-29] MEDS: SODIUM FERR GLUC 62.5MG/5ML 125 MG in SODIUM CHL 0.9% 100 ML IV SCH (14:08)
[2021-08-29] MEDS: diphenhdrAMINE HCL 50 MG/1 ML VL IV PRN (22:46)
[2021-08-29 23:15] VITALS: BP 125/73
[2021-08-30] MEDS: HYDROmorphone HCL 2 MG/ML VL IV PRN ×6 (02:26→23:38)
[2021-08-30 06:13] LABS: Basophils # (auto) 0 10 ^3/uL (0-0.2); Basophils % (auto) 0.7 % (0.0-2.0); Hemoglobin 7.2 g/dL (12.2-16.2); Lymphocytes # (auto) 1.1 10 ^3/uL (0.4-5.4); Monocytes # (auto) 0.6 10 ^3/uL (0-1.3); Neutrophils # (auto) 3.4 10 ^3/uL (1.6-8.6); Nucleated Red Blood Cells % 0.2 %
[2021-08-30 06:18] LABS: Eosinophils # (auto) 0.3 10 ^3/uL (0-0.8); Eosinophils % (auto) 5.6 % (0.0-7.0); Hematocrit 21.2 % (36.0-46.0); Lymphocytes % (auto) 20.8 % (10.0-50.0); Mean Corpuscular Hemoglobin 29.8 pg (28.0-32.0); Mean Corpuscular Hgb Conc. 33.9 g/dL (32.0-36.0); Monocytes % (auto) 11.7 % (0.0-12.0); Neutrophils % (auto) 61.2 % (37.0-80.0); Red Blood Cells 2.41 10^6/uL (4.0-5.20); Red Cell Distribution Width 17.6 % (11.8-14.3); White Blood Cell 5.5 10^3/uL (4.4-10.8)
[2021-08-30 06:24] LABS: INR 2.76 (0.9-1.15); Partial Thromboplastin Time 47.7 sec (23.6-33.0)
[2021-08-30] MEDS: SODIUM CHLOR 0.9% PF (SALINE LOCK) 10ML VIAL/SYR IV SCH ×3 (06:57→22:10)
[2021-08-30] MEDS: ACCU-CHEK COMFORT CURVE STRIP VI SCH ×2 (06:58→11:48)
[2021-08-30] MEDS: InsuLIN REG 1unit/0.01ml Soln (100units/ml) SC SCH ×2 (06:59→11:30)
[2021-08-30] MEDS ORDERED: VANCOMYCIN 1GM/250ML 250 ML IV SCH (08:00)
[2021-08-30] MEDS: ASPirin 81 mg TAB PO SCH (08:22)
[2021-08-30] MEDS: METOPROLOL TARTRATE 25 MG TAB PO SCH ×2 (08:23→22:11)
[2021-08-30] MEDS: PANTOPRAZOLE 40 MG TAB PO SCH (08:24)
[2021-08-30 09:00] VITALS: BP 137/52
[2021-08-30] MEDS ORDERED: FUROSEMIDE 40 MG/4 ML VIAL IV ONE (10:00)
[2021-08-30] MEDS ORDERED: POTASSIUM CHL 20 Meq TABLET PO ONE (10:00)
[2021-08-30] MEDS: FLUCONAZOLE 200MG/100ML 100 ML IV SCH ×2 (10:07→11:50)
[2021-08-30] MEDS: DULoxetine HCL 30 MG CAP PO SCH ×2 (10:09→22:10)
[2021-08-30 13:00] VITALS: BP 138/66
[2021-08-30] MEDS: SODIUM FERR GLUC 62.5MG/5ML 125 MG in SODIUM CHL 0.9% 100 ML IV SCH (14:43)
[2021-08-30 17:00] VITALS: BP 160/78
[2021-08-30] MEDS ORDERED: WARFARIN SODIUM 2 MG TAB PO ONE (17:00)
[2021-08-30] MEDS: HYDROcodone-ACET 5/325MG TAB PO PRN (18:16)
[2021-08-30 22:00] VITALS: BP 152/73
[2021-08-30] MEDS: VANCOMYCIN 1GM/250ML 250 ML IV SCH (22:09)
[2021-08-30] MEDS: GABAPENTIN 300 MG CAP PO SCH (22:11)
[2021-08-31 05:00] VITALS: BP 106/50
[2021-08-31] MEDS: SODIUM CHLOR 0.9% PF (SALINE LOCK) 10ML VIAL/SYR IV SCH ×3 (06:05→21:33)
[2021-08-31] MEDS: GABAPENTIN 300 MG CAP PO SCH ×3 (06:26→21:34)
[2021-08-31] MEDS: HYDROmorphone HCL 2 MG/ML VL IV PRN ×4 (06:26→21:35)
[2021-08-31 07:54] LABS: BUN/Creatinine Ratio 6.3; Calcium 8.9 mg/dL (8.5-10.1); INR 2.46 (0.9-1.15); Partial Thromboplastin Time 50.3 sec (23.6-33.0); Potassium 3.4 mmol/L (3.5-5.1)
[2021-08-31 08:30] VITALS: BP 133/56
[2021-08-31 09:00] VITALS: BP 112/54
[2021-08-31] MEDS: FLUCONAZOLE 200MG/100ML 100 ML IV SCH ×2 (10:00→11:00)
[2021-08-31] MEDS: ASPirin 81 mg TAB PO SCH (11:16)
[2021-08-31] MEDS: PANTOPRAZOLE 40 MG TAB PO SCH (11:17)
[2021-08-31] MEDS: METOPROLOL TARTRATE 25 MG TAB PO SCH ×2 (11:17→21:34)
[2021-08-31] MEDS: DULoxetine HCL 30 MG CAP PO SCH ×2 (11:17→21:33)
[2021-08-31 13:00] VITALS: BP 128/53
[2021-08-31] MEDS: SODIUM FERR GLUC 62.5MG/5ML 125 MG in SODIUM CHL 0.9% 100 ML IV SCH (14:21)
[2021-08-31] MEDS ORDERED: POTASSIUM CHL 20 Meq TABLET PO ONE (15:15)
[2021-08-31 17:00] VITALS: BP 136/92
[2021-08-31] MEDS: VANCOMYCIN 1GM/250ML 250 ML IV SCH (17:00)
[2021-08-31] MEDS ORDERED: WARFARIN SODIUM 2 MG TAB PO ONE (17:00)
[2021-08-31] MEDS: diphenhdrAMINE HCL 50 MG/1 ML VL IV PRN (21:34)
[2021-08-31 22:00] VITALS: BP 136/61
[2021-09-01] MEDS: HYDROcodone-ACET 5/325MG TAB PO PRN ×3 (01:01→23:56)
[2021-09-01] MEDS: VANCOMYCIN 1GM/250ML 250 ML IV SCH ×2 (02:02→17:11)
[2021-09-01] MEDS: HYDROmorphone HCL 2 MG/ML VL IV PRN ×4 (02:12→20:24)
[2021-09-01 05:47] LABS: Basophils # (auto) 0.1 10 ^3/uL (0-0.2); Eosinophils # (auto) 0.4 10 ^3/uL (0-0.8); Hemoglobin 7.7 g/dL (12.2-16.2); Lymphocytes # (auto) 1.6 10 ^3/uL (0.4-5.4); Red Cell Distribution Width 18.8 % (11.8-14.3)
[2021-09-01 05:51] LABS: Eosinophils % (auto) 6.5 % (0.0-7.0); Lymphocytes % (auto) 23.4 % (10.0-50.0); Mean Corpuscular Hemoglobin 29.5 pg (28.0-32.0); Mean Corpuscular Hgb Conc. 32.3 g/dL (32.0-36.0); Mean Corpuscular Volume 91.4 fL (80.0-100.0); Monocytes # (auto) 0.8 10 ^3/uL (0-1.3); Monocytes % (auto) 12.2 % (0.0-12.0); Neutrophils # (auto) 3.8 10 ^3/uL (1.6-8.6); Neutrophils % (auto) 56.9 % (37.0-80.0); Nucleated Red Blood Cells % 0.5 %; Red Blood Cells 2.63 10^6/uL (4.0-5.20); White Blood Cell 6.7 10^3/uL (4.4-10.8)
[2021-09-01 05:53] LABS: INR 3.14 (0.9-1.15)
[2021-09-01 06:06] LABS: Albumin 2.8 g/dL (3.4-5.0)
[2021-09-01 06:14] VITALS: BP 114/55
[2021-09-01] MEDS: GABAPENTIN 300 MG CAP PO SCH ×3 (06:40→22:01)
[2021-09-01] MEDS: SODIUM CHLOR 0.9% PF (SALINE LOCK) 10ML VIAL/SYR IV SCH ×3 (06:40→22:01)
[2021-09-01 09:46] VITALS: BP 116/72
[2021-09-01] MEDS: PANTOPRAZOLE 40 MG TAB PO SCH (09:49)
[2021-09-01] MEDS: DULoxetine HCL 30 MG CAP PO SCH ×2 (09:49→22:00)
[2021-09-01] MEDS: ASPirin 81 mg TAB PO SCH (09:49)
[2021-09-01] MEDS: FLUCONAZOLE 200MG/100ML 100 ML IV SCH ×2 (09:49→11:29)
[2021-09-01] MEDS: METOPROLOL TARTRATE 25 MG TAB PO SCH ×2 (09:50→22:00)
[2021-09-01 13:00] VITALS: BP 141/75
[2021-09-01] MEDS: SODIUM FERR GLUC 62.5MG/5ML 125 MG in SODIUM CHL 0.9% 100 ML IV SCH (13:38)
[2021-09-01] MEDS ORDERED: POTASSIUM CHL 10 Meq TABLET PO ONE (14:30)
[2021-09-01] MEDS ORDERED: FUROSEMIDE 40 MG TAB PO ONE (14:30)
[2021-09-01] MEDS: LIDOCAINE 1% (LOCAL ANESTH.) PF 5ml SDV ID ONE ×2 (15:10→17:15)
[2021-09-01] MEDS ORDERED: MICAFUNGIN SODIUM 100 MG in SODIUM CHL 0.9% 100 ML IV ONE ×2 (15:30→20:00)
[2021-09-01 17:50] VITALS: BP 201/92
[2021-09-01 22:00] VITALS: BP 154/41
[2021-09-01] MEDS: LACTULOSE 20Gm/30ML SOLN PO PRN (23:57)
[2021-09-02] MEDS: HYDROmorphone HCL 2 MG/ML VL IV PRN ×4 (00:40→15:32)
[2021-09-02] MEDS: diphenhdrAMINE HCL 50 MG/1 ML VL IV PRN ×2 (00:57→21:56)
[2021-09-02] MEDS: SODIUM CHLOR 0.9% PF (SALINE LOCK) 10ML VIAL/SYR IV SCH ×3 (05:54→21:53)
[2021-09-02] MEDS: GABAPENTIN 300 MG CAP PO SCH ×3 (05:54→21:55)
[2021-09-02] MEDS: VANCOMYCIN 1GM/250ML 250 ML IV SCH ×2 (05:56→21:57)
[2021-09-02 08:44] LABS: Calcium 8.6 mg/dL (8.5-10.1); Potassium 3.9 mmol/L (3.5-5.1)
[2021-09-02 08:50] LABS: Hematocrit 26.5 % (36.0-46.0); Hemoglobin 8.3 g/dL (12.2-16.2)
[2021-09-02 08:57] LABS: INR 2.94 (0.9-1.15); Partial Thromboplastin Time 53.2 sec (23.6-33.0)
[2021-09-02 09:00] VITALS: BP 159/71
[2021-09-02] MEDS: DULoxetine HCL 30 MG CAP PO SCH ×2 (09:27→21:56)
[2021-09-02] MEDS: ASPirin 81 mg TAB PO SCH (09:27)
[2021-09-02] MEDS: PANTOPRAZOLE 40 MG TAB PO SCH (09:28)
[2021-09-02] MEDS: METOPROLOL TARTRATE 25 MG TAB PO SCH ×2 (09:29→21:54)
[2021-09-02] MEDS: SODIUM FERR GLUC 62.5MG/5ML 125 MG in SODIUM CHL 0.9% 100 ML IV SCH (12:59)
[2021-09-02 13:00] VITALS: BP 142/70
[2021-09-02 17:26] VITALS: BP 152/62
[2021-09-02 20:00] VITALS: BP 159/71
[2021-09-02] MEDS: MICAFUNGIN SODIUM 100 MG in SODIUM CHL 0.9% 100 ML IV SCH (21:57)
[2021-09-02 22:00] VITALS: BP 190/73
[2021-09-03 05:00] VITALS: BP 156/54
[2021-09-03] MEDS: GABAPENTIN 300 MG CAP PO SCH ×3 (05:49→22:28)
[2021-09-03] MEDS: SODIUM CHLOR 0.9% PF (SALINE LOCK) 10ML VIAL/SYR IV SCH ×3 (07:25→22:31)
[2021-09-03 09:00] VITALS: BP 131/72
[2021-09-03] MEDS: ASPirin 81 mg TAB PO SCH (10:57)
[2021-09-03] MEDS: VANCOMYCIN 1GM/250ML 250 ML IV SCH (10:57)
[2021-09-03] MEDS: DULoxetine HCL 30 MG CAP PO SCH ×2 (10:58→22:30)
[2021-09-03] MEDS: METOPROLOL TARTRATE 25 MG TAB PO SCH ×2 (10:58→22:30)
[2021-09-03] MEDS: PANTOPRAZOLE 40 MG TAB PO SCH (10:58)
[2021-09-03] MEDS: HYDROmorphone HCL 2 MG/ML VL IV PRN ×2 (11:35→21:07)
[2021-09-03 11:49] LABS: Eosinophils # (auto) 0.3 10 ^3/uL (0-0.8); Hematocrit 25.9 % (36.0-46.0); Hemoglobin 8.4 g/dL (12.2-16.2); Lymphocytes # (auto) 1.1 10 ^3/uL (0.4-5.4); Mean Corpuscular Hemoglobin 29.5 pg (28.0-32.0); Neutrophils # (auto) 4.3 10 ^3/uL (1.6-8.6); Neutrophils % (auto) 65.3 % (37.0-80.0)
[2021-09-03 11:50] LABS: INR 2.05 (0.9-1.15); Partial Thromboplastin Time 52.5 sec (23.6-33.0)
[2021-09-03 11:57] LABS: Basophils # (auto) 0.1 10 ^3/uL (0-0.2); Mean Corpuscular Hgb Conc. 32.3 g/dL (32.0-36.0); Mean Corpuscular Volume 91.3 fL (80.0-100.0); Monocytes # (auto) 0.8 10 ^3/uL (0-1.3); Monocytes % (auto) 11.7 % (0.0-12.0); Nucleated Red Blood Cells % 0.1 %; Red Blood Cells 2.83 10^6/uL (4.0-5.20); Red Cell Distribution Width 18.9 % (11.8-14.3); White Blood Cell 6.6 10^3/uL (4.4-10.8)
[2021-09-03] MEDS ORDERED: FUROSEMIDE 40 MG TAB PO ONE (12:00)
[2021-09-03] MEDS: SODIUM FERR GLUC 62.5MG/5ML 125 MG in SODIUM CHL 0.9% 100 ML IV SCH (12:53)
[2021-09-03 12:57] VITALS: BP 165/56
[2021-09-03] MEDS: HYDROcodone-ACET 5/325MG TAB PO PRN (14:24)
[2021-09-03] MEDS ORDERED: HYDROcodone-ACET 7.5/325MG TAB PO PRN (16:00)
[2021-09-03] MEDS ORDERED: HYDR-4798 PO (16:02)
[2021-09-03] MEDS ORDERED: WARFARIN SODIUM 5 MG TAB PO ONE (17:00)
[2021-09-03 17:03] VITALS: BP 140/62
[2021-09-03 18:35] VITALS: BP 165/54
[2021-09-03] MEDS: MICAFUNGIN SODIUM 100 MG in SODIUM CHL 0.9% 100 ML IV SCH (21:02)
[2021-09-03 22:00] VITALS: BP 160/77
[2021-09-04] MEDS: diphenhdrAMINE HCL 50 MG/1 ML VL IV PRN (02:25)
[2021-09-04] MEDS: HYDROmorphone HCL 2 MG/ML VL IV PRN ×3 (02:28→13:24)
[2021-09-04] MEDS: VANCOMYCIN 1GM/250ML 250 ML IV SCH (03:31)
[2021-09-04 05:00] VITALS: BP 134/68
[2021-09-04] MEDS: GABAPENTIN 300 MG CAP PO SCH ×2 (05:47→13:11)
[2021-09-04] MEDS: SODIUM CHLOR 0.9% PF (SALINE LOCK) 10ML VIAL/SYR IV SCH ×2 (05:47→14:26)
[2021-09-04 06:11] LABS: Calcium 8.6 mg/dL (8.5-10.1); INR 2.1 (0.9-1.15); Partial Thromboplastin Time 52.3 sec (23.6-33.0); Potassium 3.4 mmol/L (3.5-5.1)
[2021-09-04] MEDS: DULoxetine HCL 30 MG CAP PO SCH (08:46)
[2021-09-04] MEDS: PANTOPRAZOLE 40 MG TAB PO SCH (08:46)
[2021-09-04] MEDS: ASPirin 81 mg TAB PO SCH (08:46)
[2021-09-04 09:00] VITALS: BP 158/86
[2021-09-04] MEDS ORDERED: POTASSIUM CHL 20 Meq TABLET PO SCH (10:00)
[2021-09-04] MEDS ORDERED: FUROSEMIDE 40 MG TAB PO SCH (10:00)
[2021-09-04] MEDS: METOPROLOL TARTRATE 25 MG TAB PO SCH (10:29)
[2021-09-04 11:18] LABS: Basophils # (auto) 0 10 ^3/uL (0-0.2); Basophils % (auto) 0.3 % (0.0-2.0); Eosinophils # (auto) 0.4 10 ^3/uL (0-0.8); Eosinophils % (auto) 6.1 % (0.0-7.0); Hematocrit 25.9 % (36.0-46.0); Hemoglobin 8.5 g/dL (12.2-16.2); Lymphocytes # (auto) 1.5 10 ^3/uL (0.4-5.4); Lymphocytes % (auto) 22.3 % (10.0-50.0); Mean Corpuscular Hemoglobin 30.1 pg (28.0-32.0); Mean Corpuscular Hgb Conc. 32.6 g/dL (32.0-36.0); Mean Corpuscular Volume 92.2 fL (80.0-100.0); Monocytes # (auto) 0.8 10 ^3/uL (0-1.3); Monocytes % (auto) 11.4 % (0.0-12.0); Neutrophils # (auto) 4.1 10 ^3/uL (1.6-8.6); Neutrophils % (auto) 59.9 % (37.0-80.0); Nucleated Red Blood Cells % 0.2 %; Red Blood Cells 2.81 10^6/uL (4.0-5.20); Red Cell Distribution Width 19.6 % (11.8-14.3); White Blood Cell 6.8 10^3/uL (4.4-10.8)
[2021-09-04] MEDS: LACTULOSE 20Gm/30ML SOLN PO PRN (11:58)
[2021-09-04] MEDS ORDERED: LISINOPRIL 20 MG TAB PO ONE (12:00)
[2021-09-04] MEDS ORDERED: FERROUS SULFATE 325mg EC TAB PO SCH (12:00)
[2021-09-04] MEDS ORDERED: TRAM50TA2 PO (12:06)
[2021-09-04 13:00] VITALS: BP 148/65
[2021-09-04] MEDS ORDERED: VANCOMYCIN 1GM/250ML 250 ML IV SCH (14:00)
[2021-09-04 17:00] VITALS: BP 126/87
[2021-09-04] MEDS ORDERED: WARFARIN SODIUM 5 MG TAB PO ONE (17:00)
[2021-09-05] MEDS ORDERED: LISINOPRIL 20 MG TAB PO SCH (10:00)
== END 2021-09-04 18:00 | disposition home health service (06) | DRG 853 ==
LOC: ER 08:49 → OVERFLOW 23:02 → CENTRAL 08-17 22:12 → TELE-CENTR 08-20 08:46
PROVIDERS: ADMIT Nurse Practitioner; ATTEND Internal Medicine
PROC: B54MZZA Ultrasonography of Right Upper Extremity Veins, Guidance (ICD-10-PCS; 2021-08-16)
PROC: 05HF33Z Insertion of Infusion Device into Left Cephalic Vein, Percutaneous Approach (ICD-10-PCS; 2021-08-16)
PROC: 3E0F7SF Introduction of Other Gas into Respiratory Tract, Via Natural or Artificial Opening (ICD-10-PCS; 2021-08-17)
PROC: 30233K1 Transfusion of Nonautologous Frozen Plasma into Peripheral Vein, Percutaneous Approach (ICD-10-PCS; 2021-08-19)
PROC: 0HBKXZZ Excision of Right Lower Leg Skin, External Approach (ICD-10-PCS; 2021-08-21)
PROC: 0JDL0ZZ Extraction of Right Upper Leg Subcutaneous Tissue and Fascia, Open Approach (ICD-10-PCS; principal; 2021-08-21 13:04)
PROC: 30233N1 Transfusion of Nonautologous Red Blood Cells into Peripheral Vein, Percutaneous Approach (ICD-10-PCS; 2021-08-24)
PROC: 02HV33Z Insertion of Infusion Device into Superior Vena Cava, Percutaneous Approach (ICD-10-PCS; 2021-09-01)
DX: A41.1 Sepsis due to other specified staphylococcus (principal); I21.A1 Myocardial infarction type 2; E43 Unspecified severe protein-calorie malnutrition; N17.0 Acute kidney failure with tubular necrosis; L03.115 Cellulitis of right lower limb; L02.415 Cutaneous abscess of right lower limb; D68.59 Other primary thrombophilia; L02.214 Cutaneous abscess of groin; T81.32XA Disruption of internal operation (surgical) wound, not elsewhere classified, initial encounter; L03.314 Cellulitis of groin; Z68.41 Body mass index [BMI] 40.0-44.9, adult; T45.515A Adverse effect of anticoagulants, initial encounter; F17.210 Nicotine dependence, cigarettes, uncomplicated; I48.0 Paroxysmal atrial fibrillation; D64.9 Anemia, unspecified; I25.10 Atherosclerotic heart disease of native coronary artery without angina pectoris; E11.51 Type 2 diabetes mellitus with diabetic peripheral angiopathy without gangrene; E66.01 Morbid (severe) obesity due to excess calories; E87.5 Hyperkalemia; E11.22 Type 2 diabetes mellitus with diabetic chronic kidney disease; N18.9 Chronic kidney disease, unspecified; I12.9 Hypertensive chronic kidney disease with stage 1 through stage 4 chronic kidney disease, or unspecified chronic kidney disease; Z20.822 Contact with and (suspected) exposure to COVID-19; Z83.3 Family history of diabetes mellitus; Z87.442 Personal history of urinary calculi; Z82.49 Family history of ischemic heart disease and other diseases of the circulatory system; Z95.2 Presence of prosthetic heart valve; Z98.51 Tubal ligation status; Z90.49 Acquired absence of other specified parts of digestive tract
CPT/HCPCS: 36415; 36569; 71045; 73700; 73701; 78452; 80048; 80053; 80202; 81001; 82040; 82270; 82565; 82962; 83540; 83550; 83605; 84484; 85014; 85018; 85025; 85610; 85730; 86850; 86900; 86901; 86920; 87040; 87070; 87075; 87077; 87186; 87205; 87426; 93017; 96361; 96365; 96367; 96368; 96375; C9113; G0378; J0153; J0330; J0690; J0696; J1450; J1815; J1956; J2248; J2250; J2405; J2704; J3490; J7060; P9047

== ENCOUNTER 2022-01-22 11:28 | Inpatient (IN) | payer OTHER, MEDICAID ==
[~2022-01-22] VITALS: Ht 162.6 cm; Wt 102.5 kg
[~2022-01-22 11:28] MED LIST changes: -AMLOPIDINE PO; -CEPH-509 PO; -DIPY50TA PO; -FAMO-12 PO; -METO-159 PO; -NOR10T PO; -PIO30T PO; -TRAM-711 PO; +TRAM50TA2 PO
[2022-01-22 13:27] LABS: Basophils # (auto) 0 10 ^3/uL (0-0.2); Hemoglobin 10.2 g/dL (12.2-16.2); Nucleated Red Blood Cells % 0.4 %
[2022-01-22 13:29] LABS: Basophils % (auto) 0.6 % (0.0-2.0); Eosinophils # (auto) 0.2 10 ^3/uL (0-0.8); Hematocrit 30.8 % (36.0-46.0); Lymphocytes # (auto) 1.7 10 ^3/uL (0.4-5.4); Lymphocytes % (auto) 24.5 % (10.0-50.0); Mean Corpuscular Hemoglobin 33.7 pg (28.0-32.0); Mean Corpuscular Hgb Conc. 33.2 g/dL (32.0-36.0); Mean Corpuscular Volume 101.3 fL (80.0-100.0); Monocytes # (auto) 0.9 10 ^3/uL (0-1.3); Monocytes % (auto) 12.3 % (0.0-12.0); Neutrophils # (auto) 4.2 10 ^3/uL (1.6-8.6); Neutrophils % (auto) 59.6 % (37.0-80.0); Red Blood Cells 3.04 10^6/uL (4.0-5.20); Red Cell Distribution Width 20.4 % (11.8-14.3)
[2022-01-22 13:45] LABS: Albumin 3.2 g/dL (3.4-5.0); Potassium 4.2 mmol/L (3.5-5.1)
[2022-01-22 13:49] LABS: BUN/Creatinine Ratio 18.9; Bilirubin, Total 0.2 mg/dL (0.2-1.0); Total Protein 6.9 g/dL (6.4-8.2)
[2022-01-22] MEDS ORDERED: ONDANSETRON HCL 4 MG/2 ML VIAL IV PRN (16:15)
[2022-01-22] MEDS ORDERED: DOCUSATE SOD 100 MG CAP PO PRN (16:15)
[2022-01-22] MEDS ORDERED: DEXTROSE (50%) 50ML SYRG IV PRN (16:15)
[2022-01-22] MEDS ORDERED: PHYTONADIONE (VIT K)10 MG/ML 1ML VIAL SUBCUT ONE (16:15)
[2022-01-22] MEDS ORDERED: ACETAMINOPHEN 325 MG TAB PO PRN (16:15)
[2022-01-22 16:18] LABS: INR > 8.0 (0.9-1.15); Partial Thromboplastin Time 104.8 sec (23.6-33.0)
[2022-01-22] MEDS: InsuLIN REG 1unit/0.01ml Soln (100units/ml) SC SCH ×2 (17:00→22:00)
[2022-01-22] MEDS ORDERED: NITROGLYCERIN 0.4 MG SL TAB SL PRN (17:00)
[2022-01-22] MEDS: ACCU-CHEK COMFORT CURVE STRIP VI SCH ×2 (17:58→22:16)
[2022-01-22] MEDS ORDERED: SODIUM CHLORIDE 0.9% 500 ML IV ONE (18:00)
[2022-01-22] MEDS: HYDROcodone-ACET 5/325MG TAB PO PRN (18:50)
[2022-01-22] MEDS: GABAPENTIN 300 MG CAP PO SCH ×2 (21:09→22:21)
[2022-01-23] MEDS: HYDROcodone-ACET 5/325MG TAB PO PRN ×3 (02:05→18:46)
[2022-01-23 04:58] VITALS: BP 122/59
[2022-01-23] MEDS: InsuLIN REG 1unit/0.01ml Soln (100units/ml) SC SCH ×4 (06:39→21:32)
[2022-01-23] MEDS: ACCU-CHEK COMFORT CURVE STRIP VI SCH ×4 (06:40→21:22)
[2022-01-23 08:53] LABS: Basophils # (auto) 0 10 ^3/uL (0-0.2); Basophils % (auto) 0.8 % (0.0-2.0); Eosinophils # (auto) 0.2 10 ^3/uL (0-0.8); Eosinophils % (auto) 4.6 % (0.0-7.0); Hematocrit 31.2 % (36.0-46.0); Hemoglobin 10.2 g/dL (12.2-16.2); Lymphocytes % (auto) 21.8 % (10.0-50.0); Mean Corpuscular Hemoglobin 32.9 pg (28.0-32.0); Mean Corpuscular Hgb Conc. 32.8 g/dL (32.0-36.0); Mean Corpuscular Volume 100.2 fL (80.0-100.0); Monocytes # (auto) 0.5 10 ^3/uL (0-1.3); Monocytes % (auto) 11.6 % (0.0-12.0); Neutrophils # (auto) 2.9 10 ^3/uL (1.6-8.6); Neutrophils % (auto) 61.2 % (37.0-80.0); Nucleated Red Blood Cells % 0.3 %; Red Blood Cells 3.11 10^6/uL (4.0-5.20); Red Cell Distribution Width 20.1 % (11.8-14.3); White Blood Cell 4.7 10^3/uL (4.4-10.8)
[2022-01-23 09:20] VITALS: BP 129/69
[2022-01-23 09:38] LABS: INR 5.09 (0.9-1.15); Partial Thromboplastin Time 71.3 sec (23.6-33.0)
[2022-01-23] MEDS: FAMOTIDINE (10MG/ML) 2ML VL IV SCH (09:52)
[2022-01-23] MEDS: FOLIC ACID 1 MG TAB PO SCH (09:52)
[2022-01-23] MEDS ORDERED: NICOTINE 14 MG/24HR TOPICAL PATCH TD SCH (10:00)
[2022-01-23 10:01] LABS: Albumin 3.1 g/dL (3.4-5.0); Calcium 8.2 mg/dL (8.5-10.1); Potassium 4.6 mmol/L (3.5-5.1)
[2022-01-23 10:04] LABS: BUN/Creatinine Ratio 18.3; Bilirubin, Total 0.4 mg/dL (0.2-1.0); Total Protein 6.8 g/dL (6.4-8.2)
[2022-01-23] MEDS: MORPHINE SULFATE INJ 2 MG/ml SYRG IV PRN ×3 (11:49→21:30)
[2022-01-23 12:32] VITALS: BP 122/43
[2022-01-23] MEDS: GABAPENTIN 300 MG CAP PO SCH ×2 (14:08→21:22)
[2022-01-23 17:07] VITALS: BP 101/51
[2022-01-23] MEDS ORDERED: hydrOXYzine 25 MG TAB or CAP PO PRN (20:30)
[2022-01-23 22:00] VITALS: BP 113/69
[2022-01-24] MEDS: MORPHINE SULFATE INJ 2 MG/ml SYRG IV PRN ×5 (01:27→21:53)
[2022-01-24 05:00] VITALS: BP 111/61
[2022-01-24] MEDS: InsuLIN REG 1unit/0.01ml Soln (100units/ml) SC SCH ×4 (06:34→22:00)
[2022-01-24] MEDS: GABAPENTIN 300 MG CAP PO SCH ×3 (06:34→21:51)
[2022-01-24] MEDS: ACCU-CHEK COMFORT CURVE STRIP VI SCH ×4 (06:34→22:03)
[2022-01-24] MEDS: FOLIC ACID 1 MG TAB PO SCH (08:54)
[2022-01-24] MEDS: FAMOTIDINE (10MG/ML) 2ML VL IV SCH (08:54)
[2022-01-24 09:00] VITALS: BP 134/63
[2022-01-24] MEDS ORDERED: PHYTONADIONE (VIT K)10 MG/ML 1ML VIAL SUBCUT ONE (09:00)
[2022-01-24 10:25] LABS: INR 1.27 (0.9-1.15); Partial Thromboplastin Time 34.2 sec (23.6-33.0)
[2022-01-24 13:00] VITALS: BP 105/60
[2022-01-24 17:00] VITALS: BP 111/57
[2022-01-24 20:00] VITALS: BP 131/78
[2022-01-24 22:00] VITALS: BP 110/41
[2022-01-25 05:00] VITALS: BP 128/70
[2022-01-25] MEDS: NYSTATIN TOPICAL POWDER 15GM TOP SCH ×2 (05:32→10:31)
[2022-01-25] MEDS: MORPHINE SULFATE INJ 2 MG/ml SYRG IV PRN ×2 (05:48→10:32)
[2022-01-25] MEDS: GABAPENTIN 300 MG CAP PO SCH (05:49)
[2022-01-25] MEDS ORDERED: PHYTONADIONE (VIT K)10 MG/ML 1ML VIAL SUBCUT ONE (06:00)
[2022-01-25] MEDS: ACCU-CHEK COMFORT CURVE STRIP VI SCH ×2 (06:32→11:59)
[2022-01-25] MEDS: InsuLIN REG 1unit/0.01ml Soln (100units/ml) SC SCH ×2 (06:32→11:30)
[2022-01-25 09:00] VITALS: BP 123/70
[2022-01-25 09:21] LABS: INR 1.08 (0.9-1.15); Partial Thromboplastin Time 27.6 sec (23.6-33.0)
[2022-01-25] MEDS: FOLIC ACID 1 MG TAB PO SCH (09:34)
[2022-01-25] MEDS: FAMOTIDINE (10MG/ML) 2ML VL IV SCH (09:34)
[2022-01-25 11:02] VITALS: BP 115/67
== END 2022-01-25 12:45 | disposition home or self-care (01) | DRG 74 ==
LOC: ER 11:28 → TELE 16:52 → TELE-CENTR 01-23 03:35
PROVIDERS: ADMIT Nurse Practitioner Family; ATTEND Nurse Practitioner Family
DX: E11.40 Type 2 diabetes mellitus with diabetic neuropathy, unspecified (principal); D68.9 Coagulation defect, unspecified; I24.9 Acute ischemic heart disease, unspecified; I13.0 Hypertensive heart and chronic kidney disease with heart failure and stage 1 through stage 4 chronic kidney disease, or unspecified chronic kidney disease; E11.69 Type 2 diabetes mellitus with other specified complication; E11.22 Type 2 diabetes mellitus with diabetic chronic kidney disease; E66.01 Morbid (severe) obesity due to excess calories; E78.5 Hyperlipidemia, unspecified; F17.210 Nicotine dependence, cigarettes, uncomplicated; I50.9 Heart failure, unspecified; Z20.822 Contact with and (suspected) exposure to COVID-19; S31.103A Unspecified open wound of abdominal wall, right lower quadrant without penetration into peritoneal cavity, initial encounter; X58.XXXA Exposure to other specified factors, initial encounter; J45.909 Unspecified asthma, uncomplicated; G89.29 Other chronic pain; N18.9 Chronic kidney disease, unspecified; Z83.3 Family history of diabetes mellitus; Z87.442 Personal history of urinary calculi; Z98.51 Tubal ligation status; Z88.2 Allergy status to sulfonamides; Z90.49 Acquired absence of other specified parts of digestive tract; Z95.2 Presence of prosthetic heart valve; Z82.49 Family history of ischemic heart disease and other diseases of the circulatory system; Y93.89 Activity, other specified; Y92.89 Other specified places as the place of occurrence of the external cause; Y99.8 Other external cause status; Z68.38 Body mass index [BMI] 38.0-38.9, adult; Z79.84 Long term (current) use of oral hypoglycemic drugs
CPT/HCPCS: 36415; 71045; 80053; 82962; 84484; 85025; 85610; 85730; 93005; 96360; 96372; 99291; G0378; J3430; J3490

== ENCOUNTER → 2022-06-22 | Outpatient (CLI) | payer OTHER, MEDICAID ==
[2022-06-22 10:52] LABS: Basophils # (auto) 0 10 ^3/uL (0-0.2); Basophils % (auto) 0.6 % (0.0-2.0); Eosinophils # (auto) 0.4 10 ^3/uL (0-0.8); Eosinophils % (auto) 4.8 % (0.0-7.0); Hematocrit 42.3 % (36.0-46.0); Lymphocytes # (auto) 0.9 10 ^3/uL (0.4-5.4); Lymphocytes % (auto) 11.9 % (10.0-50.0); Mean Corpuscular Hemoglobin 31.2 pg (28.0-32.0); Mean Corpuscular Hgb Conc. 33.2 g/dL (32.0-36.0); Monocytes # (auto) 0.9 10 ^3/uL (0-1.3); Monocytes % (auto) 12.9 % (0.0-12.0); Neutrophils # (auto) 5.1 10 ^3/uL (1.6-8.6); Neutrophils % (auto) 69.8 % (37.0-80.0); White Blood Cell 7.4 10^3/uL (4.4-10.8)
[2022-06-22 11:10] LABS: INR 2.76 (0.9-1.15)
[2022-06-22 12:24] LABS: Albumin 3.2 g/dL (3.4-5.0); Calcium 9.6 mg/dL (8.5-10.1); Potassium 3.6 mmol/L (3.5-5.1)
[2022-06-22 12:34] LABS: BUN/Creatinine Ratio 14.1; Bilirubin, Total 0.5 mg/dL (0.2-1.0); Total Protein 7.6 g/dL (6.4-8.2)
[2022-06-22 13:47] LABS: Urine Specific Gravity 1.029 (1.001-1.035)
[2022-06-22 13:48] LABS: Urine Blood Trace /uL (Negative)
[2022-06-22 18:06] LABS: Urine WBC 20-50 /hpf (0 - 5)
[2022-06-22 18:07] LABS: Urine WBC Clumps PRESENT /hpf (None Seen)
[2022-06-22 18:08] LABS: Urine Bacteria MANY /hpf (None Seen)
== END | disposition home or self-care (01) ==
LOC: LAB 10:04
PROVIDERS: ATTEND Student in an Organized Health Care Education/Training Program
DX: I10 Essential (primary) hypertension (principal); E55.9 Vitamin D deficiency, unspecified; E11.9 Type 2 diabetes mellitus without complications; Z79.01 Long term (current) use of anticoagulants
CPT/HCPCS: 36415; 80053; 80061; 81001; 82306; 83036; 84443; 85025; 85610

== ENCOUNTER → 2022-07-23 | Outpatient (CLI) | payer OTHER, MEDICAID ==
[2022-07-23 09:36] LABS: Basophils # (auto) 0.1 10 ^3/uL (0-0.2); Eosinophils # (auto) 0.1 10 ^3/uL (0-0.8); Lymphocytes # (auto) 0.9 10 ^3/uL (0.4-5.4); Neutrophils # (auto) 1.8 10 ^3/uL (1.6-8.6); Neutrophils % (auto) 56.9 % (37.0-80.0); White Blood Cell 3.1 10^3/uL (4.4-10.8)
[2022-07-23 09:38] LABS: Basophils % (auto) 1.7 % (0.0-2.0); Hematocrit 32.2 % (36.0-46.0); Hemoglobin 10.8 g/dL (12.2-16.2); Lymphocytes % (auto) 28.8 % (10.0-50.0); Mean Corpuscular Hemoglobin 33.8 pg (28.0-32.0); Mean Corpuscular Hgb Conc. 33.4 g/dL (32.0-36.0); Mean Corpuscular Volume 101.3 fL (80.0-100.0); Monocytes # (auto) 0.3 10 ^3/uL (0-1.3); Monocytes % (auto) 8.6 % (0.0-12.0); Nucleated Red Blood Cells % 0.7 %; Red Blood Cells 3.18 10^6/uL (4.0-5.20)
[2022-07-23 09:49] LABS: BUN/Creatinine Ratio 30.7; Calcium 8.7 mg/dL (8.5-10.1); Potassium 4.7 mmol/L (3.5-5.1)
[2022-07-23 09:51] LABS: Urine Bacteria FEW /hpf (None Seen); Urine Blood Negative /uL (Negative); Urine Specific Gravity 1.006 (1.001-1.035); Urine WBC 1 /hpf (0 - 5)
[2022-07-23 09:59] LABS: INR 1.99 (0.9-1.15); Red Cell Distribution Width 23.8 % (11.8-14.3)
== END | disposition home or self-care (01) ==
LOC: LAB 09:04
PROVIDERS: ATTEND Student in an Organized Health Care Education/Training Program
DX: I10 Essential (primary) hypertension (principal); N39.0 Urinary tract infection, site not specified; Z79.01 Long term (current) use of anticoagulants
CPT/HCPCS: 36415; 80048; 81001; 85025; 85610; 87086

== ENCOUNTER 2022-09-03 09:23 | Emergency (ER) | payer OTHER, MEDICAID ==
[~2022-09-03] VITALS: Ht 165.1 cm; Wt 112.7 kg
[2022-09-03 09:37] VITALS: BP 106/54
[2022-09-03] MEDS ORDERED: ACETAMINOPHEN 500 MG TAB PO ONE (10:45)
[2022-09-03] MEDS ORDERED: ACET-1080 PO (11:13)
[2022-09-03] MEDS ORDERED: CEPH-510 PO (11:13)
== END 2022-09-03 11:28 | disposition home or self-care (01) ==
LOC: ER 09:23
DX: S20.02XA Contusion of left breast, initial encounter (principal); S20.01XA Contusion of right breast, initial encounter; J45.909 Unspecified asthma, uncomplicated; E78.5 Hyperlipidemia, unspecified; I13.0 Hypertensive heart and chronic kidney disease with heart failure and stage 1 through stage 4 chronic kidney disease, or unspecified chronic kidney disease; N18.9 Chronic kidney disease, unspecified; F17.210 Nicotine dependence, cigarettes, uncomplicated; Z87.442 Personal history of urinary calculi; Z90.49 Acquired absence of other specified parts of digestive tract; Z98.51 Tubal ligation status; Z88.2 Allergy status to sulfonamides; Z79.899 Other long term (current) drug therapy; W22.8XXA Striking against or struck by other objects, initial encounter; Y93.89 Activity, other specified; Y92.89 Other specified places as the place of occurrence of the external cause; Y99.8 Other external cause status
CPT/HCPCS: 71046

== ENCOUNTER 2022-09-14 11:02 | Inpatient (IN) | payer OTHER, MEDICAID ==
[~2022-09-14] VITALS: Ht 162.6 cm; Wt 116.7 kg
[~2022-09-14 11:02] MED LIST changes: +ACET-1080 PO; +CEPH-510 PO
[2022-09-14 17:41] VITALS: BP 117/55
[2022-09-14] MEDS ORDERED: NITROGLYCERIN 0.4 MG SL TAB SL PRN (19:00)
[2022-09-14] MEDS ORDERED: MORPHINE SULFATE INJ 2 MG/ml SYRG IV PRN (19:00)
[2022-09-14] MEDS ORDERED: ONDANSETRON HCL 4 MG/2 ML VIAL IV PRN (19:45)
[2022-09-14] MEDS ORDERED: HALOPERIDOL LACTATE 5 MG/ML INJ VIAL IM PRN (19:45)
[2022-09-14] MEDS ORDERED: LORazepam 2MG/ML-1ML VIAL IV PRN (19:45)
[2022-09-14] MEDS ORDERED: DEXTROSE (50%) 50ML SYRG IV PRN (20:15)
[2022-09-14] MEDS: FUROSEMIDE 40 MG/4 ML VIAL IV SCH (21:15)
[2022-09-14] MEDS: OLANZapine 5 MG TAB PO SCH (21:15)
[2022-09-14] MEDS: TOPIRAMATE 25 MG TAB PO SCH (21:15)
[2022-09-14] MEDS: ACCU-CHEK COMFORT CURVE STRIP VI SCH (21:16)
[2022-09-14] MEDS: InsuLIN REG 1unit/0.01ml Soln (100units/ml) SC SCH (21:16)
[2022-09-14] MEDS: GABAPENTIN 300 MG CAP PO SCH (21:24)
[2022-09-14] MEDS: HYDROcodone-ACET 10/325MG TAB PO PRN (21:51)
[2022-09-14 22:00] VITALS: BP 127/71
[2022-09-15] VITALS (7 sets, daily range): BP systolic 125–137; BP diastolic 54–74
[2022-09-15] MEDS: GABAPENTIN 300 MG CAP PO SCH ×3 (05:26→21:47)
[2022-09-15] MEDS: FUROSEMIDE 40 MG/4 ML VIAL IV SCH ×2 (05:27→17:43)
[2022-09-15] MEDS: ACCU-CHEK COMFORT CURVE STRIP VI SCH ×4 (06:10→21:40)
[2022-09-15] MEDS: InsuLIN REG 1unit/0.01ml Soln (100units/ml) SC SCH ×4 (06:11→21:43)
[2022-09-15 06:27] LABS: Mean Corpuscular Hgb Conc. 33.4 g/dL (32.0-36.0)
[2022-09-15 06:29] LABS: Hematocrit 24.4 % (36.0-46.0); Hemoglobin 8.2 g/dL (12.2-16.2); Mean Corpuscular Hemoglobin 35.1 pg (28.0-32.0); Mean Corpuscular Volume 104.9 fL (80.0-100.0); Red Blood Cells 2.33 10^6/uL (4.0-5.20); White Blood Cell 3.2 10^3/uL (4.4-10.8)
[2022-09-15 06:31] LABS: Red Cell Distribution Width 23.5 % (11.8-14.3)
[2022-09-15 06:34] LABS: BUN/Creatinine Ratio 12.1; Basophils % (manual) 0 (0.0-2.0); Blast Cells 0; Metamyelocytes % 0; Promyelocytes % 0; Reactive Lymphocytes 0
[2022-09-15 06:41] LABS: Potassium 2.9 mmol/L (3.5-5.1)
[2022-09-15] MEDS: POTASSIUM CHL 20MEQ/100ML 100 ML IV SCH ×2 (08:06→09:15)
[2022-09-15 08:14] LABS: INR 0.97 (0.9-1.15); Partial Thromboplastin Time 26.5 sec (24.6-33.4)
[2022-09-15] MEDS: TOPIRAMATE 25 MG TAB PO SCH ×2 (10:42→21:47)
[2022-09-15] MEDS: LACTULOSE 20Gm/30ML SOLN PO SCH (10:42)
[2022-09-15] MEDS: OLANZapine 5 MG TAB PO SCH (10:43)
[2022-09-15 12:19] LABS: Band Neutrophils % (manual) 4; Eosinophils % (manual) 2 (0-7); Lymphocytes % (manual) 22 (10.0-50.0); Myelocytes % 1
[2022-09-15 12:20] LABS: Monocytes % (manual) 24 (0-12)
[2022-09-15] MEDS: HYDROcodone-ACET 10/325MG TAB PO PRN ×2 (13:37→21:47)
[2022-09-15] MEDS: FOLIC ACID 1 MG, MULTIPLE VITAMIN 10 ML, MAGNESIUM SULF SDV 50% 8 MEQ, THIAMINE INJ 100... INJ SCH ×10 (13:46→16:34)
[2022-09-15 15:21] LABS: Urine Bacteria FEW /hpf (None Seen); Urine Blood Negative /uL (Negative); Urine Hyaline Cast FEW /lpf (0 - 2); Urine Mucus FEW (None Seen); Urine Specific Gravity 1.011 (1.001-1.035); Urine WBC 3 /hpf (0 - 5)
[2022-09-15] MEDS: MORPHINE SULFATE INJ 2 MG/ml SYRG IV PRN (17:39)
[2022-09-16] MEDS: MORPHINE SULFATE INJ 2 MG/ml SYRG IV PRN (02:29)
[2022-09-16 05:00] VITALS: BP 142/82
[2022-09-16] MEDS: GABAPENTIN 300 MG CAP PO SCH ×3 (05:25→21:42)
[2022-09-16] MEDS: FUROSEMIDE 40 MG/4 ML VIAL IV SCH ×2 (05:26→18:08)
[2022-09-16 06:55] LABS: Albumin 2.6 g/dL (3.4-5.0); Calcium 8.3 mg/dL (8.5-10.1); INR 0.97 (0.9-1.15); Magnesium 2.2 mg/dL (1.6-2.6); Partial Thromboplastin Time 30.4 sec (24.6-33.4)
[2022-09-16] MEDS: ACCU-CHEK COMFORT CURVE STRIP VI SCH ×4 (06:55→21:42)
[2022-09-16] MEDS: InsuLIN REG 1unit/0.01ml Soln (100units/ml) SC SCH ×4 (06:55→21:43)
[2022-09-16 06:57] LABS: BUN/Creatinine Ratio 12.8
[2022-09-16 07:00] LABS: % Iron Saturation 14.3 % (15-50)
[2022-09-16 07:08] LABS: Hematocrit 24.1 % (36.0-46.0); Mean Corpuscular Hemoglobin 33.8 pg (28.0-32.0); Mean Corpuscular Hgb Conc. 33.2 g/dL (32.0-36.0); Mean Corpuscular Volume 101.8 fL (80.0-100.0); Red Blood Cells 2.37 10^6/uL (4.0-5.20); White Blood Cell 3.5 10^3/uL (4.4-10.8)
[2022-09-16 07:09] LABS: Red Cell Distribution Width 21.6 % (11.8-14.3)
[2022-09-16 07:10] LABS: Bilirubin, Total 0.8 mg/dL (0.2-1.0); Total Protein 6.1 g/dL (6.4-8.2)
[2022-09-16 07:11] LABS: Basophils % (manual) 0 (0.0-2.0); Blast Cells 0; Metamyelocytes % 0; Myelocytes % 0; Promyelocytes % 0; Reactive Lymphocytes 0
[2022-09-16 07:25] LABS: Potassium 2.9 mmol/L (3.5-5.1)
[2022-09-16 07:49] LABS: Band Neutrophils % (manual) 1; Eosinophils % (manual) 4 (0-7); Lymphocytes % (manual) 27 (10.0-50.0); Monocytes % (manual) 7 (0-12)
[2022-09-16 08:21] LABS: Free T4 (Free Thyroxine) 1.02 ng/dL (0.89-1.76)
[2022-09-16 08:22] LABS: Folate (Folic Acid) > 24.00 ng/mL (5.38-24)
[2022-09-16] MEDS: LACTULOSE 20Gm/30ML SOLN PO SCH (08:56)
[2022-09-16] MEDS: TOPIRAMATE 25 MG TAB PO SCH ×2 (08:56→21:42)
[2022-09-16] MEDS: OLANZapine 5 MG TAB PO SCH (08:56)
[2022-09-16] MEDS: HYDROcodone-ACET 10/325MG TAB PO PRN ×4 (08:58→22:16)
[2022-09-16 09:00] VITALS: BP 134/69
[2022-09-16] MEDS ORDERED: POTASSIUM CHL 20 Meq TABLET PO ONE (10:15)
[2022-09-16] MEDS ORDERED: ONDANSETRON HCL 4 MG/2 ML VIAL IV PRN (10:15)
[2022-09-16] MEDS ORDERED: cefTRIAXone 1GM/50ML D5W 50 ML IV ONE (10:30)
[2022-09-16 12:11] LABS: Hepatitis C Antibody Negative (Negative)
[2022-09-16 13:00] VITALS: BP 114/45
[2022-09-16] MEDS: FOLIC ACID 1 MG, MULTIPLE VITAMIN 10 ML, MAGNESIUM SULF SDV 50% 8 MEQ, THIAMINE INJ 100... INJ SCH ×5 (13:19)
[2022-09-16 17:00] VITALS: BP 129/77
[2022-09-16 18:23] LABS: Calcium 8.3 mg/dL (8.5-10.1); Potassium 3.4 mmol/L (3.5-5.1)
[2022-09-16 20:00] VITALS: BP 139/82
[2022-09-16] MEDS: POTASSIUM CHL 20 Meq TABLET PO SCH (21:42)
[2022-09-16 22:00] VITALS: BP 139/82
[2022-09-17] MEDS: HYDROcodone-ACET 10/325MG TAB PO PRN ×3 (03:42→21:13)
[2022-09-17 05:00] VITALS: BP 148/67
[2022-09-17] MEDS: GABAPENTIN 300 MG CAP PO SCH ×3 (05:33→21:13)
[2022-09-17] MEDS: FUROSEMIDE 40 MG/4 ML VIAL IV SCH ×2 (05:37→18:31)
[2022-09-17 05:44] LABS: Calcium 8.3 mg/dL (8.5-10.1); Magnesium 2.3 mg/dL (1.6-2.6); Potassium 3.4 mmol/L (3.5-5.1)
[2022-09-17 05:46] LABS: BUN/Creatinine Ratio 12.6
[2022-09-17] MEDS: ACCU-CHEK COMFORT CURVE STRIP VI SCH ×4 (06:13→21:14)
[2022-09-17] MEDS: InsuLIN REG 1unit/0.01ml Soln (100units/ml) SC SCH ×4 (06:14→21:14)
[2022-09-17 08:27] LABS: Hematocrit 23.3 % (36.0-46.0); Hemoglobin 7.9 g/dL (12.2-16.2); Mean Corpuscular Hemoglobin 34.8 pg (28.0-32.0); Mean Corpuscular Hgb Conc. 33.8 g/dL (32.0-36.0); Mean Corpuscular Volume 103.2 fL (80.0-100.0); Red Blood Cells 2.25 10^6/uL (4.0-5.20)
[2022-09-17 08:29] LABS: Red Cell Distribution Width 21.3 % (11.8-14.3)
[2022-09-17 08:30] LABS: Basophils % (manual) 0 (0.0-2.0); Metamyelocytes % 0; Myelocytes % 0; Promyelocytes % 0; Reactive Lymphocytes 0
[2022-09-17 09:00] VITALS: BP 149/82
[2022-09-17] MEDS: TOPIRAMATE 25 MG TAB PO SCH ×2 (09:44→21:13)
[2022-09-17] MEDS: OLANZapine 5 MG TAB PO SCH (09:45)
[2022-09-17] MEDS: POTASSIUM CHL 20 Meq TABLET PO SCH ×2 (09:45→21:13)
[2022-09-17] MEDS: LACTULOSE 20Gm/30ML SOLN PO SCH (09:46)
[2022-09-17] MEDS: cefTRIAXone 1GM/50ML D5W 50 ML IV SCH (09:46)
[2022-09-17 11:34] LABS: Band Neutrophils % (manual) 2; Blast Cells 1; Eosinophils % (manual) 1 (0-7); Lymphocytes % (manual) 13 (10.0-50.0); Monocytes % (manual) 18 (0-12)
[2022-09-17] MEDS: FOLIC ACID 1 MG, MULTIPLE VITAMIN 10 ML, MAGNESIUM SULF SDV 50% 8 MEQ, THIAMINE INJ 100... INJ SCH ×5 (12:43)
[2022-09-17 13:00] VITALS: BP 128/71
[2022-09-17 16:50] VITALS: BP 149/77
[2022-09-17 20:00] VITALS: BP 123/68
[2022-09-17 22:00] VITALS: BP 127/68
[2022-09-18 05:00] VITALS: BP 146/71
[2022-09-18] MEDS: FUROSEMIDE 40 MG/4 ML VIAL IV SCH ×2 (05:12→19:52)
[2022-09-18] MEDS: GABAPENTIN 300 MG CAP PO SCH ×3 (05:15→21:05)
[2022-09-18] MEDS: HYDROcodone-ACET 10/325MG TAB PO PRN ×3 (05:23→19:57)
[2022-09-18] MEDS: InsuLIN REG 1unit/0.01ml Soln (100units/ml) SC SCH ×4 (06:28→21:17)
[2022-09-18] MEDS: ACCU-CHEK COMFORT CURVE STRIP VI SCH ×4 (06:28→21:12)
[2022-09-18 07:05] LABS: BUN/Creatinine Ratio 16.4; Calcium 8.7 mg/dL (8.5-10.1); Potassium 3.7 mmol/L (3.5-5.1)
[2022-09-18 08:00] VITALS: BP_SYST 123; BP_SYST 137; BP_DIAS 54; BP_DIAS 68
[2022-09-18] MEDS: POTASSIUM CHL 20 Meq TABLET PO SCH ×2 (10:09→21:05)
[2022-09-18] MEDS: TOPIRAMATE 25 MG TAB PO SCH ×2 (10:10→21:05)
[2022-09-18] MEDS: LACTULOSE 20Gm/30ML SOLN PO SCH (10:11)
[2022-09-18] MEDS: OLANZapine 5 MG TAB PO SCH (10:11)
[2022-09-18] MEDS: cefTRIAXone 1GM/50ML D5W 50 ML IV SCH (10:11)
[2022-09-18 12:00] VITALS: BP 141/78
[2022-09-18 16:00] VITALS: BP 137/68
[2022-09-18 22:00] VITALS: BP 130/90
[2022-09-19] MEDS: HYDROcodone-ACET 10/325MG TAB PO PRN ×4 (01:05→20:20)
[2022-09-19 05:00] VITALS: BP 143/50
[2022-09-19] MEDS: FUROSEMIDE 40 MG/4 ML VIAL IV SCH ×2 (05:17→18:11)
[2022-09-19] MEDS: GABAPENTIN 300 MG CAP PO SCH ×3 (05:17→21:42)
[2022-09-19] MEDS: ACCU-CHEK COMFORT CURVE STRIP VI SCH ×4 (06:05→21:43)
[2022-09-19] MEDS: InsuLIN REG 1unit/0.01ml Soln (100units/ml) SC SCH ×4 (06:09→21:51)
[2022-09-19 07:01] LABS: BUN/Creatinine Ratio 15.4; Calcium 8.5 mg/dL (8.5-10.1); Potassium 4.1 mmol/L (3.5-5.1)
[2022-09-19 08:00] VITALS: BP 123/68
[2022-09-19 08:30] VITALS: BP 127/69
[2022-09-19] MEDS: OLANZapine 5 MG TAB PO SCH (09:11)
[2022-09-19] MEDS: TOPIRAMATE 25 MG TAB PO SCH ×2 (09:12→21:43)
[2022-09-19] MEDS: POTASSIUM CHL 20 Meq TABLET PO SCH ×2 (09:12→21:42)
[2022-09-19] MEDS: cefTRIAXone 1GM/50ML D5W 50 ML IV SCH (09:13)
[2022-09-19] MEDS: LACTULOSE 20Gm/30ML SOLN PO SCH (09:13)
[2022-09-19] MEDS ORDERED: FOLIC ACID 1 MG TAB PO ONE (11:00)
[2022-09-19] MEDS ORDERED: THIAMINE HCL 100 MG TAB PO ONE (11:00)
[2022-09-19] MEDS ORDERED: MULTIPLE VITAMIN TAB PO ONE (11:00)
[2022-09-19 13:00] VITALS: BP 148/63
[2022-09-19 17:00] VITALS: BP 132/67
[2022-09-19 22:00] VITALS: BP 114/58
[2022-09-20] VITALS (8 sets, daily range): BP systolic 107–133; BP diastolic 44–68
[2022-09-20] MEDS: GABAPENTIN 300 MG CAP PO SCH ×3 (06:08→22:41)
[2022-09-20] MEDS: FUROSEMIDE 40 MG/4 ML VIAL IV SCH ×2 (06:09→18:13)
[2022-09-20] MEDS: ACCU-CHEK COMFORT CURVE STRIP VI SCH ×4 (06:09→22:43)
[2022-09-20] MEDS: InsuLIN REG 1unit/0.01ml Soln (100units/ml) SC SCH ×4 (06:13→22:44)
[2022-09-20] MEDS: HYDROcodone-ACET 10/325MG TAB PO PRN ×3 (06:29→22:40)
[2022-09-20] MEDS: FOLIC ACID 1 MG TAB PO SCH (09:04)
[2022-09-20] MEDS: POTASSIUM CHL 20 Meq TABLET PO SCH ×2 (09:05→22:41)
[2022-09-20] MEDS: TOPIRAMATE 25 MG TAB PO SCH ×2 (09:05→22:41)
[2022-09-20] MEDS: OLANZapine 5 MG TAB PO SCH (09:06)
[2022-09-20] MEDS: MULTIPLE VITAMIN TAB PO SCH (09:06)
[2022-09-20] MEDS: LACTULOSE 20Gm/30ML SOLN PO SCH (09:07)
[2022-09-20] MEDS: cefTRIAXone 1GM/50ML D5W 50 ML IV SCH (09:07)
[2022-09-20] MEDS: THIAMINE HCL 100 MG TAB PO SCH (09:08)
[2022-09-20] MEDS ORDERED: diphenhdrAMINE HCL 25 MG CAP PO PRN (09:15)
[2022-09-20 10:43] LABS: Basophils # (auto) 0 10 ^3/uL (0-0.2); Eosinophils # (auto) 0.1 10 ^3/uL (0-0.8); Lymphocytes # (auto) 0.8 10 ^3/uL (0.4-5.4); Monocytes # (auto) 0.5 10 ^3/uL (0-1.3); Nucleated Red Blood Cells % 0.2 %; White Blood Cell 3.3 10^3/uL (4.4-10.8)
[2022-09-20 10:45] LABS: Basophils % (auto) 0.8 % (0.0-2.0); Eosinophils % (auto) 3.6 % (0.0-7.0); Hematocrit 29.1 % (36.0-46.0); Hemoglobin 9.4 g/dL (12.2-16.2); Lymphocytes % (auto) 25.3 % (10.0-50.0); Mean Corpuscular Hemoglobin 33.1 pg (28.0-32.0); Mean Corpuscular Hgb Conc. 32.4 g/dL (32.0-36.0); Mean Corpuscular Volume 102.1 fL (80.0-100.0); Neutrophils # (auto) 1.8 10 ^3/uL (1.6-8.6); Neutrophils % (auto) 56.3 % (37.0-80.0); Red Blood Cells 2.85 10^6/uL (4.0-5.20)
[2022-09-20 11:23] LABS: Potassium 3.9 mmol/L (3.5-5.1)
[2022-09-20 11:28] LABS: Red Cell Distribution Width 20.6 % (11.8-14.3)
[2022-09-20 11:34] LABS: Albumin 2.9 g/dL (3.4-5.0); BUN/Creatinine Ratio 13.5; Bilirubin, Total 0.4 mg/dL (0.2-1.0); Calcium 9.2 mg/dL (8.5-10.1); Total Protein 6.5 g/dL (6.4-8.2)
[2022-09-20] MEDS ORDERED: FURO1TAB31 PO (12:10)
[2022-09-20] MEDS ORDERED: POTA-220 PO (12:10)
[2022-09-20] MEDS ORDERED: ASPI1TAB20 PO ×2 (12:10)
[2022-09-21 05:00] VITALS: BP 99/42
[2022-09-21] MEDS: GABAPENTIN 300 MG CAP PO SCH ×2 (05:33→14:33)
[2022-09-21] MEDS: FUROSEMIDE 40 MG/4 ML VIAL IV SCH (05:34)
[2022-09-21] MEDS: ACCU-CHEK COMFORT CURVE STRIP VI SCH ×2 (06:24→11:37)
[2022-09-21] MEDS: InsuLIN REG 1unit/0.01ml Soln (100units/ml) SC SCH ×2 (06:25→11:39)
[2022-09-21] MEDS: HYDROcodone-ACET 10/325MG TAB PO PRN ×2 (06:25→10:44)
[2022-09-21 08:30] VITALS: BP 139/72
[2022-09-21] MEDS: MULTIPLE VITAMIN TAB PO SCH (08:48)
[2022-09-21] MEDS: FOLIC ACID 1 MG TAB PO SCH (08:48)
[2022-09-21] MEDS: OLANZapine 5 MG TAB PO SCH (08:48)
[2022-09-21] MEDS: POTASSIUM CHL 20 Meq TABLET PO SCH (08:48)
[2022-09-21] MEDS: TOPIRAMATE 25 MG TAB PO SCH (08:48)
[2022-09-21] MEDS: THIAMINE HCL 100 MG TAB PO SCH (08:48)
[2022-09-21] MEDS: LACTULOSE 20Gm/30ML SOLN PO SCH (08:48)
[2022-09-21] MEDS: cefTRIAXone 1GM/50ML D5W 50 ML IV SCH (08:49)
[2022-09-21 09:00] VITALS: BP 112/49
[2022-09-21] MEDS ORDERED: WARFARIN SODIUM 2 MG TAB PO ONE (10:00)
[2022-09-21] MEDS ORDERED: WARF4TAB33 PO (10:03)
[2022-09-21 13:17] VITALS: BP 124/70
== END 2022-09-21 16:12 | disposition home health service (06) | DRG 205 ==
LOC: TELE-CENTR 17:00
PROVIDERS: ADMIT Registered Nurse; ATTEND Internal Medicine
DX: S22.39XA Fracture of one rib, unspecified side, initial encounter for closed fracture (principal); I50.33 Acute on chronic diastolic (congestive) heart failure; J96.00 Acute respiratory failure, unspecified whether with hypoxia or hypercapnia; G93.40 Encephalopathy, unspecified; E44.0 Moderate protein-calorie malnutrition; N39.0 Urinary tract infection, site not specified; Z68.42 Body mass index [BMI] 45.0-49.9, adult; S20.211A Contusion of right front wall of thorax, initial encounter; Z20.822 Contact with and (suspected) exposure to COVID-19; R79.1 Abnormal coagulation profile; E66.01 Morbid (severe) obesity due to excess calories; F10.10 Alcohol abuse, uncomplicated; S30.1XXA Contusion of abdominal wall, initial encounter; D53.9 Nutritional anemia, unspecified; E11.9 Type 2 diabetes mellitus without complications; E87.6 Hypokalemia; I11.0 Hypertensive heart disease with heart failure; D69.6 Thrombocytopenia, unspecified; I48.0 Paroxysmal atrial fibrillation; W18.39XA Other fall on same level, initial encounter; I25.10 Atherosclerotic heart disease of native coronary artery without angina pectoris; T45.515A Adverse effect of anticoagulants, initial encounter; Z79.01 Long term (current) use of anticoagulants; Z79.02 Long term (current) use of antithrombotics/antiplatelets; Z88.2 Allergy status to sulfonamides; Y92.89 Other specified places as the place of occurrence of the external cause; Z79.899 Other long term (current) drug therapy; Z82.49 Family history of ischemic heart disease and other diseases of the circulatory system; Z83.3 Family history of diabetes mellitus; Z91.14 Patient's other noncompliance with medication regimen; Z95.1 Presence of aortocoronary bypass graft; Z95.2 Presence of prosthetic heart valve; Y93.89 Activity, other specified; Y99.8 Other external cause status; Z90.49 Acquired absence of other specified parts of digestive tract
CPT/HCPCS: 36415; 36600; 71045; 71250; 73562; 74176; 80048; 80053; 81001; 82140; 82306; 82607; 82746; 82805; 82962; 83036; 83540; 83550; 83735; 83880; 84439; 84443; 85007; 85025; 85027; 85045; 85610; 85730; 86803; 87081; 87340; 87426; 93306; 93970; 97110; 97116; 97163; 97530; G0378; J0696; J1815; J2405; J3480

== ENCOUNTER → 2022-10-18 | Outpatient (CLI) | payer OTHER, MEDICAID ==
[~2022-10-18] MED LIST changes: -ATOR80TA PO; -CEPH-510 PO; -CLOP75TA28 PO; +FURO1TAB31 PO; +POTA-220 PO; -WARF2TAB49 PO; +WARF4TAB33 PO
[2022-10-18 09:22] LABS: Basophils # (auto) 0 10 ^3/uL (0-0.2); Basophils % (auto) 0.5 % (0.0-2.0); Eosinophils # (auto) 0.3 10 ^3/uL (0-0.8); Eosinophils % (auto) 5.2 % (0.0-7.0); Hematocrit 40.1 % (36.0-46.0); Hemoglobin 13.1 g/dL (12.2-16.2); Lymphocytes # (auto) 0.8 10 ^3/uL (0.4-5.4); Lymphocytes % (auto) 15.5 % (10.0-50.0); Mean Corpuscular Hemoglobin 32.4 pg (28.0-32.0); Mean Corpuscular Hgb Conc. 32.6 g/dL (32.0-36.0); Mean Corpuscular Volume 99.2 fL (80.0-100.0); Monocytes # (auto) 0.4 10 ^3/uL (0-1.3); Monocytes % (auto) 8.3 % (0.0-12.0); Neutrophils # (auto) 3.4 10 ^3/uL (1.6-8.6); Neutrophils % (auto) 70.5 % (37.0-80.0); Nucleated Red Blood Cells % 0.3 %; Red Blood Cells 4.04 10^6/uL (4.0-5.20); Red Cell Distribution Width 17.5 % (11.8-14.3); White Blood Cell 4.9 10^3/uL (4.4-10.8)
[2022-10-18 09:50] LABS: Urine Bacteria FEW /hpf (None Seen); Urine Blood Negative /uL (Negative); Urine Hyaline Cast FEW /lpf (0 - 2); Urine Specific Gravity 1.016 (1.001-1.035); Urine WBC 8 /hpf (0 - 5)
[2022-10-18 10:23] LABS: Potassium 4.6 mmol/L (3.5-5.1)
[2022-10-18 10:31] LABS: Albumin 3.2 g/dL (3.4-5.0); BUN/Creatinine Ratio 8.9 (10.0-20.0); Bilirubin, Total 0.3 mg/dL (0.2-1.0); Calcium 9.3 mg/dL (8.5-10.1); Total Protein 7.2 g/dL (6.4-8.2)
== END | disposition home or self-care (01) ==
LOC: LAB 09:02
PROVIDERS: ATTEND Student in an Organized Health Care Education/Training Program
DX: Z12.11 Encounter for screening for malignant neoplasm of colon (principal); I10 Essential (primary) hypertension; E11.9 Type 2 diabetes mellitus without complications; E03.8 Other specified hypothyroidism
CPT/HCPCS: 36415; 80053; 80061; 81001; 82274; 83036; 84439; 84443; 85025